=== PATIENT | female | born 1985 | race American Indian/Alaskan Native ===

== ENCOUNTER 2020-06-15 09:29 | Outpatient (REF) | payer OTHER, SELFPAY | END 2020-06-15 09:30 | disposition home or self-care (01) | LOC: HO.LAB 09:29 | PROVIDERS: PCP Internal Medicine; Visit Provider Internal Medicine | DX: Z20.822 Contact with and (suspected) exposure to COVID-19 (principal) | CPT/HCPCS: 36415; C9803; U0003 ==

== ENCOUNTER 2020-08-30 15:22 | Outpatient (REF) | payer OTHER, SELFPAY ==
[2020-08-30 17:35] LABS: HCG Quantitative < 2 mIU/mL; Thyroid Stimulating Hormone 1.58 uIU/mL (0.32-4.0)
[2020-08-31 04:30] LABS: HIV AB/AG Nonreactive (Nonreactive); HIV Num 1 0.07 S/CO (0.00-0.99); ~HepC Num1 0.07 S/CO (0.00-0.79); ~Hepatitis C Antibody Nonreactive (Nonreactive)
[2020-08-31 04:42] LABS: HBsAGNum1 0.47 S/CO (0.00-0.99); Hepatitis B Surface Antigen Negative (Negative)
[2020-08-31 08:49] LABS: CT PCR NOT DETECTED (Not Detect.); NG PCR NOT DETECTED (Not Detect.)
[2020-08-31 09:19] LABS: BV Int Neg Control Negative (Negative); BV Int Pos Control Positive (Positive)
[2020-09-01 04:26] LABS: Syphilis Screen Nonreactive (Nonreactive)
[2020-09-02 01:07] LABS: HPV mRNA E6/E7 rflx Not Detected (Not Detected)
== END 2020-08-30 15:23 | disposition home or self-care (01) ==
LOC: HO.LAB 15:22
PROVIDERS: PCP Internal Medicine; Visit Provider Obstetrics & Gynecology
DX: Z30.431 Encounter for routine checking of intrauterine contraceptive device (principal); N93.0 Postcoital and contact bleeding; Z11.3 Encounter for screening for infections with a predominantly sexual mode of transmission
CPT/HCPCS: 36415; 84443; 84702; 86780; 86803; 87340; 87389; 87480; 87491; 87510; 87591; 87624; 87660; 88142; 99212

== ENCOUNTER 2020-09-05 15:52 | Outpatient (REF) | payer OTHER, SELFPAY ==
--- NOTE | ~2020-09-05 | US_ITS ---
EXAMINATION: ULTRASOUND PELVIS COMPLETE CLINICAL INFORMATION: Post coital and contact bleeding COMPARISON: None TECHNIQUE: Transabdominal and transvaginal ultrasound pelvis is performed FINDINGS: The uterus is anteverted and anteflexed measuring 9.3 cm in length, 1.8 cm in AP and 3.9 cm in transverse dimension. There is IUD visualized lower located in the lower uterine segment same as previous study. The endometrial thickness is 1.3 cm. There is a tenderness on transvaginal ultrasound imaging the uterus hence mild limitation. The right ovary is not visualized. The left ovary measures 2.9 x 2.3 x 2.1 cm and volume 7.3 mL. There are small follicular cysts seen in left ovary. There is no free fluid in the cul-de-sac US/US pelvic complete IMPRESSION: Small follicular cyst in the left ovary. The right ovary is not seen. IUD in the lower uterine segment. The uterus is unremarkable. There is no free fluid in cul-de-sac.
--- NOTE | ~2020-09-05 | US_ITS ---
EXAMINATION: ULTRASOUND PELVIS COMPLETE CLINICAL INFORMATION: Post coital and contact bleeding COMPARISON: None TECHNIQUE: Transabdominal and transvaginal ultrasound pelvis is performed FINDINGS: The uterus is anteverted and anteflexed measuring 9.3 cm in length, 1.8 cm in AP and 3.9 cm in transverse dimension. There is IUD visualized lower located in the lower uterine segment same as previous study. The endometrial thickness is 1.3 cm. There is a tenderness on transvaginal ultrasound imaging the uterus hence mild limitation. The right ovary is not visualized. The left ovary measures 2.9 x 2.3 x 2.1 cm and volume 7.3 mL. There are small follicular cysts seen in left ovary. There is no free fluid in the cul-de-sac US/US transvaginal IMPRESSION: Small follicular cyst in the left ovary. The right ovary is not seen. IUD in the lower uterine segment. The uterus is unremarkable. There is no free fluid in cul-de-sac.
== END 2020-09-05 15:53 | disposition home or self-care (01) ==
LOC: HO.US 15:52
PROVIDERS: PCP Internal Medicine; Visit Provider Obstetrics & Gynecology
DX: N93.0 Postcoital and contact bleeding (principal)
CPT/HCPCS: 76830; 76856

== ENCOUNTER → 2020-09-19 14:32 | Outpatient (BNVA) | payer OTHER, SELFPAY | PROVIDERS: PCP Internal Medicine; Visit Provider Obstetrics & Gynecology ==

== ENCOUNTER 2020-09-20 15:16 | Outpatient (REF) | payer OTHER, SELFPAY ==
[2020-09-20 15:46] LABS: COVID-19 Test Negative (Negative); IDNOW Serial# 55D5AD1C
== END 2020-09-20 15:17 | disposition home or self-care (01) ==
LOC: HO.LAB 15:16
PROVIDERS: Visit Provider Internal Medicine
DX: Z20.822 Contact with and (suspected) exposure to COVID-19 (principal)
CPT/HCPCS: 36415; 87635; C9803

== ENCOUNTER 2020-11-30 13:48 | Outpatient (REF) | payer OTHER, SELFPAY ==
[2020-12-01 07:47] LABS: Syphilis Screen Nonreactive (Nonreactive)
[2020-12-01 11:48] LABS: CT PCR NOT DETECTED (Not Detect.); NG PCR NOT DETECTED (Not Detect.)
== END 2020-11-30 13:49 | disposition home or self-care (01) ==
LOC: HO.LAB 13:48
PROVIDERS: PCP Internal Medicine; Visit Provider Obstetrics & Gynecology
DX: Z11.3 Encounter for screening for infections with a predominantly sexual mode of transmission (principal)
CPT/HCPCS: 36415; 86780; 87491; 87591

== ENCOUNTER 2021-01-09 07:54 | Outpatient (REF) | payer OTHER, SELFPAY ==
[2021-01-09 13:43] LABS: CT PCR NOT DETECTED (Not Detect.); NG PCR NOT DETECTED (Not Detect.)
== END 2021-01-09 07:55 | disposition home or self-care (01) ==
LOC: HO.LAB 07:54
PROVIDERS: PCP Internal Medicine; Visit Provider Obstetrics & Gynecology
DX: Z30.430 Encounter for insertion of intrauterine contraceptive device (principal)
CPT/HCPCS: 58300; 87491; 87591

== ENCOUNTER → 2021-02-06 15:19 | Outpatient (BNVA) | payer OTHER, SELFPAY | PROVIDERS: PCP Internal Medicine; Visit Provider Obstetrics & Gynecology | DX: Z30.431 Encounter for routine checking of intrauterine contraceptive device (principal) | CPT/HCPCS: 99212 ==

== ENCOUNTER 2021-05-29 11:42 | Outpatient (REF) | payer OTHER, SELFPAY ==
[2021-05-29 14:50] LABS: Binax Internal Control QC Valid; Binax Lot number: 9864; Binax Now Covid-19 Ag Negative (Negative)
== END 2021-05-29 11:43 | disposition home or self-care (01) ==
LOC: HO.LAB 11:42
PROVIDERS: Visit Provider Internal Medicine
DX: Z20.822 Contact with and (suspected) exposure to COVID-19 (principal)
CPT/HCPCS: 36415; C9803

== ENCOUNTER 2021-07-23 08:36 | Outpatient (REF) | payer OTHER, SELFPAY ==
[2021-07-23 11:00] LABS: Hematocrit 44.5 % (37.0-47.0); Hemoglobin 13.3 g/dl (12.0-16.0); Mean Corpuscular HGB Conc 29.9 g/dl (31.0-35.0); Mean Corpuscular Hemoglobin 21.6 pg (27.0-33.0); Mean Corpuscular Volume 72.1 fL (80.0-98.0); Mean Platelet Volume 10.3 fL (9.4-12.3); Platelet Count 298 X10*3/uL (160-400); Red Blood Count 6.17 X10*6/uL (4.20-5.50); Red Cell Distribution Width 17.8 % (11.0-16.0)
[2021-07-23 11:50] LABS: ~Hepatitis C Antibody Nonreactive (Nonreactive)
[2021-07-23 12:02] LABS: HIV AB/AG Nonreactive (Nonreactive); HIV Num 1 0.08 S/CO (0.00-0.99); Hepatitis B Surface Antigen Negative (Negative)
[2021-07-23 12:13] LABS: Syphilis Screen Nonreactive (Nonreactive)
[2021-07-23 15:13] LABS: CT PCR NOT DETECTED (Not Detect.); NG PCR NOT DETECTED (Not Detect.)
[2021-07-23 16:22] LABS: BV Int Neg Control Negative (Negative); BV Int Pos Control Positive (Positive)
== END 2021-07-23 08:37 | disposition home or self-care (01) ==
LOC: HO.LAB 08:36
PROVIDERS: Visit Provider Advanced Practice Midwife
DX: Z01.411 Encounter for gynecological examination (general) (routine) with abnormal findings (principal); Z11.3 Encounter for screening for infections with a predominantly sexual mode of transmission; Z11.4 Encounter for screening for human immunodeficiency virus [HIV]; R10.9 Unspecified abdominal pain; N89.8 Other specified noninflammatory disorders of vagina; Z20.2 Contact with and (suspected) exposure to infections with a predominantly sexual mode of transmission; T38.4X5A Adverse effect of oral contraceptives, initial encounter; Z86.2 Personal history of diseases of the blood and blood-forming organs and certain disorders involving the immune mechanism
CPT/HCPCS: 36415; 85027; 86780; 86803; 87086; 87340; 87389; 87480; 87491; 87510; 87591; 87660; 99212

== ENCOUNTER 2021-08-15 12:55 | Outpatient (REF) | payer OTHER, SELFPAY ==
--- NOTE | ~2021-08-15 | US_ITS ---
EXAMINATION: US PELVIS CLINICAL INFORMATION: Abnormal uterine bleeding. COMPARISON: Previous pelvic ultrasound August 2020 TECHNIQUE: Ultrasound of the pelvis is performed using both transabdominal and transvaginal transducers along with Doppler. Transvaginal imaging is performed due to inadequate visualization transabdominally. FINDINGS: The uterus is anteverted and retroflexed and measures 11.8 x 4.2 x 5.2 cm in dimension. There is an IUD in the uterus in satisfactory position. Endometrial thickness is upper normal measuring 1.5 cm. No focal uterine lesion is seen. There is a small amount of fluid in the cervix. The ovaries are seen transabdominally only. The right ovary is normal-appearing and measures 3.5 x 1.8 x 2.9 cm. The left ovary is slightly enlarged and measures 4.3 x 2.6 x 3.5 cm. There is a 4.1 x 1.9 x 3.3 cm minimally complex cyst with single thin septation. This is new from August 2020 exam. There is no fluid in the pelvis. US/US pelvic and transvaginal IMPRESSION: IUD in the uterus in satisfactory position. Upper normal thickness endometrium measuring 1.5 cm. 4.1 x 1.9 x 3.3 cm minimally complex left ovarian cyst with single thin septation new from August 2020 exam.
[2021-08-15 14:59] LABS: HCG Quantitative < 2 mIU/mL; TSH reflex Free T4 1.88 uIU/mL (0.32-4.0)
== END 2021-08-15 12:56 | disposition home or self-care (01) ==
LOC: HO.US 12:55
PROVIDERS: Obstetrics & Gynecology; Visit Provider Advanced Practice Midwife
DX: N93.9 Abnormal uterine and vaginal bleeding, unspecified (principal); T38.4X5A Adverse effect of oral contraceptives, initial encounter
CPT/HCPCS: 36415; 76830; 76856; 81025; 84443; 84702

== ENCOUNTER 2021-08-29 14:48 | Outpatient (REF) | payer OTHER, SELFPAY ==
[2021-08-31 02:41] LABS: CA 125 New Method 6 U/mL (<35); CA-125 6 U/mL (<35)
== END 2021-08-29 14:49 | disposition home or self-care (01) ==
LOC: HO.LAB 14:48
PROVIDERS: PCP Nurse Practitioner Pediatrics; Visit Provider Obstetrics & Gynecology
DX: N83.299 Other ovarian cyst, unspecified side (principal); N93.9 Abnormal uterine and vaginal bleeding, unspecified
CPT/HCPCS: 36415; 86304; 99212

== ENCOUNTER 2021-11-29 11:01 | Outpatient (REF) | payer OTHER, SELFPAY ==
--- NOTE | ~2021-11-29 | US_ITS ---
EXAMINATION: US PELVIS CLINICAL INFORMATION: Follow up complex ovarian cyst COMPARISON: Previous pelvic ultrasound most recent July 2021 TECHNIQUE: Ultrasound of the pelvis is performed using both transabdominal and transvaginal transducers along with Doppler. Transvaginal imaging is performed due to inadequate visualization transabdominally. FINDINGS: The uterus is anteverted and retroflexed and measures 9.6 x 5 x 5.4 cm in dimension. There is an IUD in the uterus in satisfactory position. The endometrium does not appear thickened. There is a small amount of fluid seen in the lower uterine segment and cervix. No focal uterine lesion is seen. The ovaries are normal-appearing. The right ovary measures 3.8 x 2.6 x 2.6 cm. The left ovary measures 3.5 x 2.5 x 2.2 cm. There is no fluid in the pelvis. US/US pelvic and transvaginal Impression: IUD in the uterus in satisfactory position. Normal-appearing ovaries. Previously identified left ovarian cyst from July 2021 has resolved.
== END 2021-11-29 11:02 | disposition home or self-care (01) ==
LOC: HO.US 11:01
PROVIDERS: Visit Provider Obstetrics & Gynecology
DX: N83.299 Other ovarian cyst, unspecified side (principal)
CPT/HCPCS: 76830; 76856

== ENCOUNTER 2021-12-13 14:43 | Outpatient (REF) | payer OTHER, SELFPAY | END 2021-12-13 14:44 | disposition home or self-care (01) | LOC: HO.LAB 14:43 | PROVIDERS: Visit Provider Obstetrics & Gynecology | DX: N83.299 Other ovarian cyst, unspecified side (principal); N93.9 Abnormal uterine and vaginal bleeding, unspecified | CPT/HCPCS: 58100; 88305; 99212 ==

== ENCOUNTER → 2022-01-01 11:49 | Outpatient (BNVA) | payer OTHER, SELFPAY | PROVIDERS: PCP Nurse Practitioner Pediatrics; Visit Provider Obstetrics & Gynecology | DX: N93.9 Abnormal uterine and vaginal bleeding, unspecified (principal); Z71.2 Person consulting for explanation of examination or test findings | CPT/HCPCS: 99212 ==

== ENCOUNTER 2023-04-29 09:30 | Outpatient (REF) | payer SELFPAY ==
[2023-04-29 17:35] LABS: CT PCR NOT DETECTED (Not Detect.); NG PCR NOT DETECTED (Not Detect.)
[2023-04-30 14:21] LABS: BV Int Neg Control Negative (Negative); BV Int Pos Control Positive (Positive)
== END 2023-04-29 09:31 | disposition home or self-care (01) ==
LOC: HO.LNP 09:30
PROVIDERS: PCP Nurse Practitioner Pediatrics; Visit Provider Obstetrics & Gynecology
DX: N93.9 Abnormal uterine and vaginal bleeding, unspecified (principal); N76.0 Acute vaginitis; B96.89 Other specified bacterial agents as the cause of diseases classified elsewhere
CPT/HCPCS: 0353U; 87480; 87510; 87660; 99212

== ENCOUNTER 2023-04-29 09:30 | Outpatient (AMB) | payer SELFPAY ==
[2023-04-29 09:37] VITALS: BP 116/80; BMI 29.1
--- NOTE | 2023-04-29 09:37 | MHC.OFFVIS ---
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 The workup done for abnormal uterine bleeding in 01/12 see was the following: TSH, hCG, GC and chlamydia done few months ago were negative. Endometrial biopsy pathology showed no evidence of hyperplasia and/or malignancy. Co testing was done in 09/13 was negative. Pelvic ultrasound showed IUD in appropriate position otherwise unremarkable PFSH Medical History Hypertension Anorexia Surgical History H/O bilateral breast reduction surgery History of 2 sections Social History Alcohol intake: never Patient Tobacco Use Status: Never used Tobacco Gender identity: Female Female Reproductive History Menstrual Age of Menarche: 12 Duration of menses: 6-7 days Date of last menstrual period: 04/18/23 control method: none Date of last pap smear: 08/31/20 (negative) Review of Systems Const All systems reviewed & are unremarkable except as noted in HPI and below Physical Exam General: Yes no CVA tenderness External Female Exam: normal external appearance and normal appearance of the urethra Speculum Exam - Vagina: normal appearance of the vagina, normal palpation, no lesions and no masses Speculum Exam - Cervix: normal appearance of the cervix, normal palpation, no lesions, no masses and nontender Bimanual exam- vagina & uterus: normal bimanual exam, normal palpation, uterine size normal, normal palpation, uterine shape normal, No Cervical tenderness present and non-tender Bimanual Exam- Adnexa, other: normal adnexae Back/Spine/Pelvis Back: no CVA tenderness Assessment & Plan Assessment & Plan (1) Abnormal uterine bleeding (AUB): Code(s): N93.9 - Abnormal uterine and vaginal bleeding, unspecified Plan: Discussed with the patient the results of the work up done and options of treatment including Lysteda, BCP's, Depo-Provera, endometrial ablation and hysterectomy. All pros, cons, risks and benefits if each option was discussed with the patient and the patient decided to think about it and get back to us. All questions answered the patient verbalized understanding. (2) Bacterial vaginal infection: Code(s): N76.0 - Acute vaginitis; B96.89 - Other specified bacterial agents as the cause of diseases classified elsewhere Plan: GC and chlamydia cultures with BV panel taken. Per CDC recommendation, will screen for STI, HepBs Ag, HIV, RPR, Hep C Ab ordered. Will treat with Flagyl 500 mg p.o. b.i.d. x 7 days, Instructions given to the patient to refrain from sexual activity or to use condoms consistently and correctly during the BV treatment regimen, not to douch, it might increase the risk for relapse, and to call if symptoms persist or recur. Orders: Orders Bacterial Vaginosis Panel Today N93.9 - Abnormal uterine and vaginal bleeding, unspecified Hepatitis B Surface Antibody Today B96.89 - Other specified bacterial agents as the cause of diseases classified elsewhere, N76.0 - Acute vaginitis Hepatitis C Antibody Today B96.89 - Other specified bacterial agents as the cause of diseases classified elsewhere, N76.0 - Acute vaginitis CT NG by PCR Today N93.9 - Abnormal uterine and vaginal bleeding, unspecified Syphilis Screen Today B96.89 - Other specified bacterial agents as the cause of diseases classified elsewhere, N76.0 - Acute vaginitis HIV Ab/Ag Today B96.89 - Other specified bacterial agents as the cause of diseases classified elsewhere, N76.0 - Acute vaginitis Medications: New metronidazole 500 mg PO BID 14 tabs 0RF 7 days Coding Level of Care Code Est Pt Level 3 (50553) Diagnoses Abnormal uterine bleeding (AUB) N93.9 Bacterial vaginal infection N76.0; B96.89
== END 2023-04-29 10:14 | disposition home or self-care (01) ==
LOC: HO.HWS 09:30
PROVIDERS: PCP Nurse Practitioner Pediatrics; Visit Provider Obstetrics & Gynecology
DX: N93.9 Abnormal uterine and vaginal bleeding, unspecified (principal); N76.0 Acute vaginitis; B96.89 Other specified bacterial agents as the cause of diseases classified elsewhere
CPT/HCPCS: 99213

== ENCOUNTER 2023-06-17 16:44 | Outpatient (REF) | payer OTHER, SELFPAY ==
[2023-06-18 08:57] LABS: Syphilis Screen Nonreactive (Nonreactive)
[2023-06-18 09:22] LABS: HIV AB/AG Nonreactive (Nonreactive); HIV Num 1 0.07 S/CO (0.00-0.99); ~HepC Num1 0.07 S/CO (0.00-0.79); ~Hepatitis B Surface Antibody REACTIVE (Nonreactive); ~Hepatitis C Antibody Nonreactive (Nonreactive)
== END 2023-06-17 16:45 | disposition home or self-care (01) ==
LOC: HO.LAB 16:44
PROVIDERS: PCP Internal Medicine; Visit Provider Obstetrics & Gynecology
DX: N76.0 Acute vaginitis (principal); B96.89 Other specified bacterial agents as the cause of diseases classified elsewhere
CPT/HCPCS: 36415; 86706; 86780; 86803; 87389

== ENCOUNTER 2024-04-20 13:27 | Outpatient (AMB) | payer OTHER, SELFPAY ==
[2024-04-20 13:37] VITALS: BP 118/70; BMI 26.8
--- NOTE | 2024-04-20 13:37 | MHC.OFFVIS ---
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 She says that she had a Mirena IUD placed twice last year but her body rejected it 2 times so she says in her conversation with Dr. Clements who has decided she would not use it anymore she says her partner is in [place] but he has had a vasectomy so she does not need control anyway. She said prior to the Mirena that came out twice she had a ParaGard copper IUD for 10 years and she had it removed because it was and that was fine accept that she says that she gained a lot of weight while she had it in she says that she lost a lot a weight when it was removed and sometime after that she then had breast reduction surgery and abdominal plasty in [place].. She feels something on her left side than she would like that checked. She complains of discharge periodically in her cycle and does not think it is normal she says sometimes it smells after her period, she says sometimes she gets vaginal itching after taking antibiotics. She says she also gets increased discharge with ovulation but she also gets a little bit more discharge before and after her. And she does not think this is her menses and she does not think this is normal or so much discharge with ovulation either. She says her periods are very normal and always come at the same time and her last 1 came on March 29. She says her periods are much more regular now that she has lost all the weight and does not have an IUD in. [facility] Medical History Hypertension Anorexia Surgical History H/O bilateral breast reduction surgery History of 2 sections Social History Alcohol intake: never Patient Tobacco Use Status: Never used Tobacco Gender identity: Female Female Reproductive History Menstrual Age of Menarche: 12 Duration of menses: 3-5 days Date of last menstrual period: 02/28/24 control method: none Total pregnancies: 2 Full term: 2 Date of last pap smear: 08/31/20 (negative) History of abnormal pap smear: No Physical Exam Vital Signs: Last Vital Signs BP 118/70 04/20/24 13:37 BMI result Body Mass Index 26.8 Const General: healthy appearing, comfortable, no acute distress, well developed and alert Nutritional Appearance: average body habitus Orientation/consciousness: patient oriented x3 Limitations: no limitations HEENT Head: Yes normocephalic Neck Neck: Yes normal visual inspection Chest Chest palpation & inspection: normal inspection of the chest Breast/axilla inspection: normal inspection of the breasts and normal inspection of the axillae Breast/axilla palpation: normal palpation of the breasts and normal palpation of the axillae Resp Effort & Inspection: normal respiratory effort GI Inspection: Yes normal to inspection, No Abdominal wall edema and No distended Palpation (GI): Soft to palpation and nontender Other: Note scars from breast reduction surgery and from abdominal plasty Vagina is pink and moist fairly normal appearing white mucus consistent with luteal phase cervix pink smooth healthy mobile nontender uterus feels either slightly enlarged anterior or is fixed status post abdominal plastic surgery and therefore more easily palpable secondary to alteration in abdominal musculature no unusual mass palpated but I will get ultrasound to check. Good muscle tone General: Yes bladder normal to palpation External Female Exam: normal external appearance and normal appearance of the urethra Speculum Exam - Vagina: normal appearance of the vagina, normal palpation and normal vaginal discharge Speculum Exam - Cervix: normal appearance of the cervix, normal palpation and nontender Bimanual exam- vagina & uterus: normal bimanual exam, normal palpation, uterine size normal, bladder normal to palpation, consistency normal, normal palpation, uterine mobility normal, uterine shape normal, No Cervical tenderness present, non-tender and no cervical motion tenderness Bimanual Exam- Adnexa, other: normal adnexae, no masses, normal and No adnexal tenderness Neuro General: patient oriented x3 Results Reviewed Results Reviewed: Name: Kelly Fowler Age/Sex: 35/F Attending: Vu Clements MD : 1985 Submitted by: Vu Clements MD Copies to: RIGOBERTO ARENAS MD MR #: [id number] Status: DEP REF Collected: 08/30/20 Location: .LAB Received: 08/31/20 Interpretation Satisfactory for evaluation. Negative for intraepithelial lesion or malignancy. Fungal organisms consistent with Maryse species. HPV mRNA E6/E7: NOT DETECTED This assay detects E6/E7 viral messenger RNA (mRNA) from 14 high-risk HPV types (16, 18, 31, 33, 35, 39, 45, 51, 52, 56, 58, 59, 66, 68) HPV testing performed by [facility], [place], [place]. See reference laboratory portion of the EMR for entire report. Clinical Information LMP: 08/05/20 Previous PAP test: Unknown Date/Findings Material Received ThinPrep Cervical Copies To RIGOBERTO ARENAS MD [address] [place] [address] [phone] Vu Clements MD [address] [place] [address] Dr. Ren [address] [place] [address] [phone] Electronically Signed By: Jazmine Lloyd 09/04/20 2271 The Pap Test is a screening procedure with the inherent possibility of both false negative and false positive results. Results should be interpreted in the context of historic and current clinical findings. Reliability of the Pap Test is enhanced by performing the test on a regular repetitive basis. Patient: Ras Page 1 of 1 Assessment & Plan Assessment & Plan (1) History of 2 sections: Code(s): Z98.891 - History of uterine scar from previous surgery Category: Surgical (2) Screening for STD (sexually transmitted disease): Code(s): Z11.3 - Encounter for screening for infections with a predominantly sexual mode of transmission Category: Medical (3) control counseling: Code(s): Z30.09 - Encounter for other general counseling and advice on contraception Category: Medical (4) H/O bilateral breast reduction surgery: Code(s): Z98.890 - Other specified postprocedural states Category: Surgical (5) Well woman exam: Code(s): Z01.419 - Encounter for gynecological examination (general) (routine) without abnormal findings Category: Medical (6) Well woman exam with routine gynecological exam: Code(s): Z01.419 - Encounter for gynecological examination (general) (routine) without abnormal findings Category: Medical (7) Hx of abdominoplasty: Code(s): Z98.890 - Other specified postprocedural states Category: Surgical (8) Bulky or enlarged uterus: Comment: Versus simply more easy to feel status post abdominal plasty Code(s): N85.2 - Hypertrophy of uterus Category: Medical Plan -----Discussed in this visit the following: healthy balanced diet, regular and consistent exercise, getting recommended health screens, doing the best she can for her particular health concerns, kegel exercises, pap smear screening and followup recommendations, mammography screening and SBE, normal changes in cycles in her life stage--- . Patient desires HIV testing and other blood work for STIs testing done for other infections as well discharge does appear within normal limits but we will await the results of the testing and she may certainly treat if there is bacteria or yeast even though they are normal cristian. Discussed that she is not due for Pap smear if she never ever ever had an abnormal in her last 1 was negative in 2020. Discussed that the ParaGard IUD could not in any way influence weight gain or loss. However there could have been other life circumstances for sure that could have contributed to it in any event she is happy with her weight now and maintaining it well. Because of her concern for something that she feels and just to be certain I am ordering a pelvic ultrasound as her uterus was somewhat easy to palpate and just to make sure it is not enlarged. It may have been just more palpable because of her abdominal plasty. Orders: Orders Bacterial Vaginosis Panel Today N89.8 - Other specified noninflammatory disorders of vagina HIV Ab/Ag Today Z01.419 - Encounter for gynecological examination (general) (routine) without abnormal findings, Z11.3 - Encounter for screening for infections with a predominantly sexual mode of transmission, Z30.09 - Encounter for other general counseling and advice on contraception, Z98.890 - Other specified postprocedural states, Z98.891 - History of uterine scar from previous surgery Syphilis Screen Today Z01.419 - Encounter for gynecological examination (general) (routine) without abnormal findings, Z11.3 - Encounter for screening for infections with a predominantly sexual mode of transmission, Z30.09 - Encounter for other general counseling and advice on contraception, Z98.890 - Other specified postprocedural states, Z98.891 - History of uterine scar from previous surgery US pelvic and transvaginal Today N85.2 - Hypertrophy of uterus, Z98.890 - Other specified postprocedural states CT NG by PCR Today N89.8 - Other specified noninflammatory disorders of vagina, Z20.2 - Contact with and (suspected) exposure to infections with a predominantly sexual mode of transmission Hepatitis C Antibody Today [id number] - Encounter for gynecological examination (general) (routine) without abnormal findings, Z11.3 - Encounter for screening for infections with a predominantly sexual mode of transmission, Z30.09 - Encounter for other general counseling and advice on contraception, Z98.890 - Other specified postprocedural states, Z98.891 - History of uterine scar from previous surgery Hepatitis B Surface Antigen Today Z01.419 - Encounter for gynecological examination (general) (routine) without abnormal findings, Z11.3 - Encounter for screening for infections with a predominantly sexual mode of transmission, Z30.09 - Encounter for other general counseling and advice on contraception, Z98.890 - Other specified postprocedural states, Z98.891 - History of uterine scar from previous surgery Coding Level of Care Code Est Pt Prev Care 18-39y(47295) Diagnoses History of 2 sections Z98.891 Screening for STD (sexually transmitted disease) Z11.3 control counseling Z30.09 H/O bilateral breast reduction surgery Z98.890 Well woman exam Z01.419 Well woman exam with routine gynecological exam Z01.419 Hx of abdominoplasty Z98.890 Bulky or enlarged uterus N85.2
== END 2024-04-20 14:35 | disposition home or self-care (01) ==
PROVIDERS: PCP Internal Medicine; Visit Provider Advanced Practice Midwife
DX: Z01.419 Encounter for gynecological examination (general) (routine) without abnormal findings (principal); Z98.891 History of uterine scar from previous surgery; Z11.3 Encounter for screening for infections with a predominantly sexual mode of transmission; Z30.09 Encounter for other general counseling and advice on contraception; Z98.890 Other specified postprocedural states; N85.2 Hypertrophy of uterus
CPT/HCPCS: 99395

== ENCOUNTER 2024-04-20 13:27 | Outpatient (REF) | payer OTHER, SELFPAY ==
[2024-04-21 04:06] LABS: CT PCR NOT DETECTED (Not Detect.); NG PCR NOT DETECTED (Not Detect.)
[2024-04-21 08:52] LABS: Bacterial Vaginosis PCR POSITIVE (Negative); Candida Group PCR NOT DETECTED (Not Detect); Candida glab krusei PCR NOT DETECTED (Not Detect); Trichomonas vaginalis PCR NOT DETECTED (Not Detect)
== END 2024-04-20 13:28 | disposition home or self-care (01) ==
LOC: HO.LAB 13:27
PROVIDERS: PCP Internal Medicine; Visit Provider Advanced Practice Midwife
DX: Z01.419 Encounter for gynecological examination (general) (routine) without abnormal findings (principal); N89.8 Other specified noninflammatory disorders of vagina; Z20.2 Contact with and (suspected) exposure to infections with a predominantly sexual mode of transmission
CPT/HCPCS: 0352U; 87491; 87591; 99395

== ENCOUNTER 2024-04-21 13:23 | Outpatient (REF) | payer OTHER, SELFPAY ==
[2024-04-22 08:31] LABS: HBsAGNum1 0.51 S/CO (0.00-0.99); HIV AB/AG Nonreactive (Nonreactive); HIV Num 1 0.05 S/CO (0.00-0.99); Hepatitis B Surface Antigen Negative (Negative); ~Hepatitis C Antibody Nonreactive (Nonreactive)
[2024-04-22 08:33] LABS: Syphilis Screen Nonreactive (Nonreactive)
== END 2024-04-21 13:24 | disposition home or self-care (01) ==
LOC: HO.HHCL 13:23
PROVIDERS: Visit Provider Advanced Practice Midwife
DX: Z11.4 Encounter for screening for human immunodeficiency virus [HIV] (principal); Z11.3 Encounter for screening for infections with a predominantly sexual mode of transmission; Z98.890 Other specified postprocedural states; Z98.891 History of uterine scar from previous surgery
CPT/HCPCS: 36415; 86780; 86803; 87340; 87389

== ENCOUNTER 2024-05-03 13:02 | Outpatient (REF) | payer OTHER, SELFPAY | END 2024-05-03 13:03 | disposition home or self-care (01) | LOC: HO.US 13:02 | PROVIDERS: PCP Internal Medicine; Visit Provider Advanced Practice Midwife | DX: N85.2 Hypertrophy of uterus (principal); Z98.890 Other specified postprocedural states | CPT/HCPCS: 76830; 76856 ==

== ENCOUNTER 2024-06-17 11:19 | Outpatient (AMB) | payer OTHER, SELFPAY ==
[2024-06-17 11:37] VITALS: BP 116/66; BMI 26.6
--- NOTE | 2024-06-17 11:37 | MHC.OFFVIS ---
Vital Signs 06/17/24 11:37 Height 5 ft 1 in Weight 141 lb BMI 26.6 BP 116/66 Intake Visit Reasons: Ultrasound follow up [employer] Services: [employer] Present Information Interpreted: clinical only Birth Attendant: Birth Attendant Present Allergies amoxicillin [AMOXICILLIN] Allergy (Mild, Verified 06/17/24 11:37) ITCH Medication List - Last Reconciled 06/17/24 by Corina Manuel CNM amlodipine 10 mg PO DAILY Is last menstrual period known: Yes Last menstrual period: 05/28/24 HPI HPI Ultrasound follow up: Details: Patient is here to follow-up on her pelvic ultrasound she was seen in April and she was noticing some discomfort on the right side. She had had abdominal plasty in [place] after she had lost a lot of weight she lost the weight on her own with her diet and being careful she did not qualify for bariatric surgery. She is maintaining the weight loss and she feels better she does suffer from constipation. She does note that she has regular periods now and she had it quite it it with not having the ParaGard IUD anymore but I again clarified that the ParaGard IUD does not cause irregular periods however when she had irregular periods she was in the 250 lb range and I explained again how being overweight contributes to irregular and missed menses. Reviewed the ultrasound with her in detail reviewed that there was no pathology seen and that some things were not seen well because of gas overlying. Discussed the symptoms of when she has pain and discomfort and gas and she does know in fact that she is more prone to constipation and gas pains in the 2nd half of her menstrual cycle after ovulation. Discussed that this is a normal occurrence for most women and reviewed the physiological changes that occur with the hormonal changes that part of the cycle contributing to increased issues with constipation. She uses prune juice to help with that which is excellent she says MiraLax does not work for her. 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 Her primary care provider's in the [place] system. PFSH Medical History Hypertension Anorexia Surgical History Hx of abdominoplasty H/O bilateral breast reduction surgery History of 2 sections Social History (Reviewed 06/17/24 @ 11:38 by JAMAAL Maurice Alcohol intake: never Patient Tobacco Use Status: Never used Tobacco Gender identity: Female Female Reproductive History Menstrual Age of Menarche: 12 Date of last menstrual period: 05/28/24 control method: none Date of last pap smear: 08/31/20 (negative) Physical Exam Vital Signs: Last Vital Signs BP 116/66 06/17/24 11:37 BMI result Body Mass Index 26.6 Results Reviewed Results Reviewed: Patient: Kelly Fowler MR#: [id number] : 1985 Acct:[id number] Age/Sex: 38 / F ADM Date: 05/03/24 Loc: HO.US Attending Dr: Corina Manuel CNM Ordering Physician: Corina Manuel CNM Date of Service: 05/03/24 Procedure(s): US pelvic and transvaginal Accession Number(s): [id number] cc: Corina Manuel CNM; Shanice Duke MD~ EXAMINATION: US PELVIS CLINICAL INFORMATION: Hypertrophy of uterus, last menstrual period 04/26/2024. COMPARISON: 11/29/2021 TECHNIQUE: Ultrasound of the pelvis is performed using both transabdominal and transvaginal transducers along with Doppler. Transvaginal imaging is performed due to inadequate visualization transabdominally. FINDINGS: Anteverted uterus measures 10.2 x 4.0 x 5.9 cm and is retroflexed. Nabothian cysts in the cervix. Trace amount of fluid in the lower uterine segment and in the endocervical canal. Double wall endometrial thickness is 5 mm. Right ovary measures 2.6 x 2.1 x 3.1 cm, volume 12.3 mL. Left ovary measures 3.6 x 2.4 x 2.5 cm, volume 11.4 mL. Visualization of the bilateral ovaries is limited due to bowel gas. US/US pelvic and transvaginal IMPRESSION: 1. Endometrial thickness is 5 mm. 2. Prominent bilateral ovaries as detailed above are difficult to characterize due to limited visualization. 3. Limited visualization particularly of the uterine fundus and body due to uterine position and bowel gas. Electronically signed by: Marilyn Arnold MD 06/14/2024 10:02 AM EST Assessment & Plan Assessment & Plan (1) Bulky or enlarged uterus: Comment: Versus simply more easy to feel status post abdominal plasty; no pathology seen on ultrasound though obscured somewhat by gas... Code(s): N85.2 - Hypertrophy of uterus Category: Medical Plan Patient is here to follow-up on her pelvic ultrasound she was seen in April and she was noticing some discomfort on the right side. She had had abdominal plasty in [place] after she had lost a lot of weight she lost the weight on her own with her diet and being careful she did not qualify for bariatric surgery. She is maintaining the weight loss and she feels better she does suffer from constipation. She does note that she has regular periods now and she had it quite it it with not having the ParaGard IUD anymore but I again clarified that the ParaGard IUD does not cause irregular periods however when she had irregular periods she was in the 250 lb range and I explained again how being overweight contributes to irregular and missed menses. Reviewed the ultrasound with her in detail reviewed that there was no pathology seen and that some things were not seen well because of gas overlying. Discussed the symptoms of when she has pain and discomfort and gas and she does know in fact that she is more prone to constipation and gas pains in the 2nd half of her menstrual cycle after ovulation. Discussed that this is a normal occurrence for most women and reviewed the physiological changes that occur with the hormonal changes that part of the cycle contributing to increased issues with constipation. She uses prune juice to help with that which is excellent she says MiraLax does not work for her. 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 Her primary care provider's in the [place] system. Reviewed all of the above and recommend that she consider signing for records of the ultrasound to get to her primary care provider and if she does have any increased problems with gas pains in constipation and discomfort that she talk with her primary care provider but there was no pathology noted and even though there was citing made of prominent ovaries the size indicated was within normal limits.. She is very happy with how she looks and feels now with her regular periods and after her abdominal plasty and weight loss. I congratulated her again on her efforts at keeping her body weight in the desirable range. May want to sign to make sure her primary gets copy of her pelvic ultrasound RTC for annual and p.r.n. Coding Level of Care Code Est Pt Level 3 (06893) Diagnoses Bulky or enlarged uterus N85.2
== END 2024-06-17 13:03 | disposition home or self-care (01) ==
LOC: HO.HWSM 11:19
PROVIDERS: PCP Internal Medicine; Visit Provider Advanced Practice Midwife
DX: N85.2 Hypertrophy of uterus (principal)
CPT/HCPCS: 99213

== ENCOUNTER → 2024-06-17 11:19 | Outpatient (BNVA) | payer OTHER, SELFPAY | PROVIDERS: PCP Internal Medicine; Visit Provider Advanced Practice Midwife | DX: N85.2 Hypertrophy of uterus (principal) | CPT/HCPCS: 99212 ==

== ENCOUNTER 2025-04-25 13:19 | Outpatient (AMB) | payer SELFPAY ==
--- NOTE | 2025-04-25 13:20 | MHC.OFFVIS ---
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 She did have sex with somebody but used a condom in December. She is not intending to have sex anymore her partner Rx partner is in [place] and she is not intending on being active any time soon and stated in the past that he had a vasectomy. She has had Mirena IUDs in the past and irregular menses as well as other methods. However since recent time she has had very normal periods and is not currently sexually active nor planning to be and does not need or require any other method of control. Her last menstrual period was April 15 it was normal they last about 4-5 days and they are coming regularly now. She says she has lost about 100 lb in total she had various cosmetic surgeries to deal with the aftermath of the weight loss including breast reduction surgery followed by a breast implants and abdominal plasty and also lie peau suction and hypo plasty but her body rejected some of it in her buttock and she had a large swelling suctioned out at [facility] a couple of months after the surgery it was not infected or anything it was just that her body rejected it according to the surgeon. She says her blood pressure is in good control in fact sometimes it is low so her doctor has told her to monitor it and take it when it is low. This note is constructed using voice recognition software. While every effort has been made to ensure accuracy, respite coordinator errors may have been included. PFSH Medical History Hypertension Anorexia Surgical History Hx of abdominoplasty H/O bilateral breast reduction surgery History of 2 sections Social History Alcohol intake: never Patient Tobacco Use Status: Never used Tobacco Patient : No Gender identity: Female Female Reproductive History Menstrual Age of Menarche: 12 Duration of menses: 3-5 days Date of last menstrual period: 04/15/25 control method: none Total pregnancies: 2 Full term: 2 Physical Exam Vital Signs: BMI result Body Mass Index 28.3 Const Other: Patient has scars from cosmetic surgery... General: healthy appearing, comfortable, no acute distress, well developed and alert Nutritional Appearance: average body habitus Orientation/consciousness: patient oriented x3 Limitations: no limitations HEENT Head: Yes normocephalic Neck Neck: Yes normal visual inspection Chest Chest palpation & inspection: normal inspection of the chest Breast/axilla inspection: normal inspection of the breasts and normal inspection of the axillae Breast/axilla palpation: normal palpation of the breasts and normal palpation of the axillae Resp Effort & Inspection: normal respiratory effort GI Inspection: Yes normal to inspection, No Abdominal wall edema and No distended Palpation (GI): Soft to palpation and nontender Other: External exam within normal limits vagina pink and moist scant amount white discharge. Cervix is pink and nulliparous healthy-appearing long close thick mobile nontender uterus anteverted does not feel enlarged but slightly fixed secondary to scar tissue from 2 C sections and abdominal plasty adnexa mobile nontender nonenlarged good muscle tone with Kegel. General: Yes bladder normal to palpation External Female Exam: normal external appearance and normal appearance of the urethra Speculum Exam - Vagina: normal appearance of the vagina, normal palpation and normal vaginal discharge Speculum Exam - Cervix: normal appearance of the cervix, normal palpation and nontender Bimanual exam- vagina & uterus: normal bimanual exam, normal palpation, uterine size normal, bladder normal to palpation, consistency normal, normal palpation, uterine mobility normal, uterine shape normal, No Cervical tenderness present, non-tender and no cervical motion tenderness Bimanual Exam- Adnexa, other: normal adnexae, no masses, normal and No adnexal tenderness Neuro General: patient oriented x3 Results Reviewed Results Reviewed: Name: Mcginnis NerisKelly Age/Sex: 35/F Attending: Vu Clements MD : 1985 Submitted by: Vu Clements MD Copies to: RIGOBERTO DUKE MD MR #: [id number] Status: DEP REF Collected: 08/30/20 Location: .LAB Received: 08/31/20 Interpretation Satisfactory for evaluation. Negative for intraepithelial lesion or malignancy. Fungal organisms consistent with Maryse species. HPV mRNA E6/E7: NOT DETECTED This assay detects E6/E7 viral messenger RNA (mRNA) from 14 high-risk HPV types (16, 18, 31, 33, 35, 39, 45, 51, 52, 56, 58, 59, 66, 68) HPV testing performed by [facility], [place], [place]. See reference laboratory portion of the EMR for entire report. Clinical Information LMP: 08/05/20 Previous PAP test: Unknown Date/Findings Material Received ThinPrep Cervical Copies To RIGOBERTO DUKE MD [address] [place] [address] [phone] Vu Clements MD [address] [place], [place] [address] [address] Electronically Signed By: Jazmine Lloyd 09/04/20 7038 The Pap Test is a screening procedure with the inherent possibility of both false negative and false positive results. Results should be interpreted in the context of historic and current clinical findings. Reliability of the Pap Test is enhanced by performing the test on a regular repetitive basis. Patient: Ras Page 1 of 1 Patient: Kelly Fowler MR#: [id number] : 1985 Acct:[id number] Age/Sex: 38 / F ADM Date: 05/03/24 Loc: HO.US Attending Dr: Corina Manuel CNM Ordering Physician: Corina Manuel CNM Date of Service: 05/03/24 Procedure(s): US pelvic and transvaginal Accession Number(s): [id number] cc: Corina Manuel CNM; Rigoberto Duke MD~ EXAMINATION: US PELVIS CLINICAL INFORMATION: Hypertrophy of uterus, last menstrual period 04/26/2024. COMPARISON: 11/29/2021 TECHNIQUE: Ultrasound of the pelvis is performed using both transabdominal and transvaginal transducers along with Doppler. Transvaginal imaging is performed due to inadequate visualization transabdominally. FINDINGS: Anteverted uterus measures 10.2 x 4.0 x 5.9 cm and is retroflexed. Nabothian cysts in the cervix. Trace amount of fluid in the lower uterine segment and in the endocervical canal. Double wall endometrial thickness is 5 mm. Right ovary measures 2.6 x 2.1 x 3.1 cm, volume 12.3 mL. Left ovary measures 3.6 x 2.4 x 2.5 cm, volume 11.4 mL. Visualization of the bilateral ovaries is limited due to bowel gas. US/US pelvic and transvaginal IMPRESSION: 1. Endometrial thickness is 5 mm. 2. Prominent bilateral ovaries as detailed above are difficult to characterize due to limited visualization. 3. Limited visualization particularly of the uterine fundus and body due to uterine position and bowel gas. 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: Assessment & Plan Assessment & Plan (1) History of 2 sections: Code(s): Z98.891 - History of uterine scar from previous surgery Category: Surgical (2) H/O bilateral breast reduction surgery: Comment: followed years later, after the weight loss, by breast implants Code(s): Z98.890 - Other specified postprocedural states Category: Surgical (3) Well woman exam with routine gynecological exam: Code(s): Z01.419 - Encounter for gynecological examination (general) (routine) without abnormal findings Category: Medical (4) Hx of abdominoplasty: Comment: And in August 2024 liposuction and [place]o plasty in [place], needed to be seen at [facility] 2' months later secondary to rejection of Lipo and suctioning off of liquid.... Code(s): Z98.890 - Other specified postprocedural states Category: Surgical (5) Encounter for screening examination for sexually transmitted disease: Code(s): Z11.3 - Encounter for screening for infections with a predominantly sexual mode of transmission Category: Medical Plan -----Discussed in this visit the following: healthy balanced diet, regular and consistent exercise, getting recommended health screens, doing the best she can for her particular health concerns, kegel exercises, pap smear screening and followup recommendations, mammography screening and SBE, normal changes in cycles in her life stage--- . Reviewed her history of her surgeries review that mammograms will start when she is age 42 reviewed her care with her primary care provider in her monitoring of her high blood pressure reviewed her lack of need for any control at this time and safer sex which she is very aware of she has feeling more less okay with things with her body now though she is not entirely happy with the scar tissue. Since she will be due for Pap smear this coming August I did her Pap smear today along with testing for STIs because sometimes she notices an odor she did have sex in December with a friend though she says she used condoms. She also did want to get blood work for STIs and I have ordered those as well we will see her in a year she is happy that her periods are back to normal now she is more unless happy with her weight now. Orders: Orders Hepatitis B Surface Antigen Today Z01.419 - Encounter for gynecological examination (general) (routine) without abnormal findings, Z11.3 - Encounter for screening for infections with a predominantly sexual mode of transmission, Z98.890 - Other specified postprocedural states, Z98.891 - History of uterine scar from previous surgery Hepatitis C Antibody Today Z01.419 - Encounter for gynecological examination (general) (routine) without abnormal findings, Z11.3 - Encounter for screening for infections with a predominantly sexual mode of transmission, Z98.890 - Other specified postprocedural states, Z98.891 - History of uterine scar from previous surgery Syphilis Screen Today Z01.419 - Encounter for gynecological examination (general) (routine) without abnormal findings, Z11.3 - Encounter for screening for infections with a predominantly sexual mode of transmission, Z98.890 - Other specified postprocedural states, Z98.891 - History of uterine scar from previous surgery HIV Ab/Ag Today Z01.419 - Encounter for gynecological examination (general) (routine) without abnormal findings, Z11.3 - Encounter for screening for infections with a predominantly sexual mode of transmission, Z98.890 - Other specified postprocedural states, Z98.891 - History of uterine scar from previous surgery Coding Level of Care Code Est Pt Prev Care 18-39y(34501) Diagnoses History of 2 sections Z98.891 H/O bilateral breast reduction surgery Z98.890 Well woman exam with routine gynecological exam Z01.419 Hx of abdominoplasty Z98.890 Encounter for screening examination for sexually transmitted disease Z11.3
[2025-04-25 13:21] VITALS: BP 118/78; BMI 28.3
--- OUTSIDE RECORDS SUMMARY | 2025-04-25 16:55 | XMS_ITS ---
Author Name [facility] Organization Unknown Results Test Name/Text Value Interpretation Date Range Source Calcium SerPl-mCnc 8.2 mg/dL Below low normal 03/04/2025 8.4 - 10.2 [facility] Sodium SerPl-sCnc 139.0 mmol/L 03/04/2025 135 - 14 5 [facility] Potassium SerPl-sCnc 4.0 mmol/L 03/04/2025 3.5 - 5 .1 [facility] Chloride SerPl-sCnc 105.0 mmol/L 03/04/2025 98 - 1 07 [facility] Glucose SerPl-mCnc 94.0 mg/dL 03/04/2025 70 - 199 [facility] CO2 SerPl-sCnc 27.0 mmol/L 03/04/2025 24 - 32 [facility] BUN/Creat SerPl 24.0 Above high normal 03/04/2025 12 - 20 [facility] BUN SerPl-mCnc 12.0 mg/dL 03/04/2025 7 - 17 [facility] eGFRcr SerPlBld CKD-EPI 2020 124.0 mL/min/1.73m2 03/04/2025 - [facility] Anion Gap SerPl Calc-sCnc 7.0 03/04/2025 5 - 14 [facility] Creat SerPl-mCnc 0.5 mg/dL 03/04/2025 0.5 - 1 CT [facility] Phosphate SerPl-mCnc 3.4 mg/dL 03/04/2025 2.5 - 4. 5 [facility] Magnesium SerPl-mCnc 1.9 mg/dL 03/04/2025 1.7 - 2. 8 [facility] Erythrocyte DistWidth Bld Auto 16.0 % 03/04/2025 12.1 - 16.2 [facility] Eosinophil # Bld Auto 0.1 K/mcL 03/04/2025 0 - 0.5 [facility] Hgb Bld-mCnc 12.5 g/dL 03/04/2025 12.5 - 16 [facility] Hct VFr Bld Auto 37.9 % 03/04/2025 37 - 47 [facility] RBC # Bld Auto 5.15 M/mcL 03/04/2025 4.2 - 5.4 [facility] MCH RBC Qn Auto 24.3 pcg Below low normal 03/04/2025 25 - 3 3 [facility] MCHC RBC Auto-EntMCnc 33.0 g/dL 03/04/2025 32 - 36 [facility] Platelet # Bld Auto 267.0 K/mcL 03/04/2025 150 - 4 50 [facility] Lymphocytes NFr Bld Auto 28.3 % 03/04/2025 20 - 48 [facility] Basophils NFr Bld Auto 0.9 % 03/04/2025 0 - 2 [facility] MCV RBC Auto 73.6 FL Below low normal 03/04/2025 78 - 100 [facility] WBC # Bld Auto 6.6 K/mcL 03/04/2025 4 - 10.5 [facility] PMV Bld Auto 8.3 FL 03/04/2025 7.4 - 11.4 [facility] Monocytes NFr Bld Auto 6.8 % 03/04/2025 2 - 12 [facility] Basophils # Bld Auto 0.1 K/mcL 03/04/2025 0 - 0.2 [facility] Lymphocytes # Bld Auto 1.9 K/mcL 03/04/2025 1 - 3.2 [facility] Neutrophils # Bld Auto 4.1 K/mcL 03/04/2025 1.8 - 7.8 [facility] Eosinophil NFr Bld Auto 1.8 % 03/04/2025 0 - 6 [facility] Neutrophils NFr Bld Auto 62.2 % 03/04/2025 44 - 74 [facility] Monocytes # Bld Auto 0.4 K/mcL 03/04/2025 0 - 0.8 [facility] Vancomycin Trough SerPl-mCnc 5.5 mcg/mL Below low normal 03/03/2025 10 - 20 [facility] Magnesium SerPl-mCnc 2.0 mg/dL 03/03/2025 1.7 - 2. 8 [facility] Phosphate SerPl-mCnc 3.2 mg/dL 03/03/2025 2.5 - 4. 5 [facility] ALP SerPl-cCnc 54.0 unit/L 03/03/2025 34 - 104 [facility] Globulin Ser Calc-mCnc 2.4 g/dL 03/03/2025 2.3 - 3.5 [facility] Bilirub Direct SerPl-mCnc 0.0 mg/dL 03/03/2025 0 - 0.2 [facility] Prot SerPl-mCnc 6.0 g/dL Below low normal 03/03/2025 6.4 - 8.5 [facility] Albumin SerPl-mCnc 3.6 g/dL 03/03/2025 3.5 - 5 [facility] AST SerPl-cCnc 11.0 unit/L 03/03/2025 5 - 40 [facility] Albumin/Glob SerPl 1.5 03/03/2025 [facility] ALT SerPl-cCnc 6.0 unit/L Below low normal 03/03/2025 7 - 52 [facility] Bilirub SerPl-mCnc 0.5 mg/dL 03/03/2025 0.3 - 1 [facility] CO2 SerPl-sCnc 26.0 mmol/L 03/03/2025 24 - 32 [facility] Creat SerPl-mCnc 0.5 mg/dL 03/03/2025 0.5 - 1 [facility] Sodium SerPl-sCnc 138.0 mmol/L 03/03/2025 135 - 14 5 [facility] Potassium SerPl-sCnc 3.8 mmol/L 03/03/2025 3.5 - 5 .1 [facility] BUN/Creat SerPl 22.0 Above high normal 03/03/2025 12 - 20 [facility] eGFRcr SerPlBld CKD-EPI 2020 124.0 mL/min/1.73m2 03/03/2025 - [facility] Glucose SerPl-mCnc 80.0 mg/dL 03/03/2025 70 - 199 [facility] Anion Gap SerPl Calc-sCnc 8.0 03/03/2025 5 - 14 [facility] BUN SerPl-mCnc 11.0 mg/dL 03/03/2025 7 - 17 [facility] Calcium SerPl-mCnc 7.9 mg/dL Below low normal 03/03/2025 8.4 - 10.2 [facility] Chloride SerPl-sCnc 104.0 mmol/L 03/03/2025 98 - 1 07 [facility] MCH RBC Qn Auto 24.4 pcg Below low normal 03/03/2025 25 - 3 3 [facility] Basophils NFr Bld Auto 0.4 % 03/03/2025 0 - 2 [facility] MCHC RBC Auto-EntMCnc 33.2 g/dL 03/03/2025 32 - 36 [facility] Monocytes # Bld Auto 0.4 K/mcL 03/03/2025 0 - 0.8 [facility] Neutrophils # Bld Auto 4.7 K/mcL 03/03/2025 1.8 - 7.8 [facility] Lymphocytes NFr Bld Auto 27.9 % 03/03/2025 20 - 48 [facility] Basophils # Bld Auto 0.0 K/mcL 03/03/2025 0 - 0.2 [facility] PMV Bld Auto 8.6 FL 03/03/2025 7.4 - 11.4 [facility] Hct VFr Bld Auto 38.6 % 03/03/2025 37 - 47 [facility] RBC # Bld Auto 5.25 M/mcL 03/03/2025 4.2 - 5.4 [facility] Hgb Bld-mCnc 12.8 g/dL 03/03/2025 12.5 - 16 [facility] Lymphocytes # Bld Auto 2.0 K/mcL 03/03/2025 1 - 3.2 [facility] Neutrophils NFr Bld Auto 64.8 % 03/03/2025 44 - 74 [facility] Eosinophil NFr Bld Auto 1.9 % 03/03/2025 0 - 6 [facility] Erythrocyte DistWidth Bld Auto 15.7 % 03/03/2025 12.1 - 16.2 [facility] MCV RBC Auto 73.6 FL Below low normal 03/03/2025 78 - 100 [facility] Monocytes NFr Bld Auto 5.0 % 03/03/2025 2 - 12 [facility] Eosinophil # Bld Auto 0.1 K/mcL 03/03/2025 0 - 0.5 [facility] Platelet # Bld Auto 285.0 K/mcL 03/03/2025 150 - 4 50 [facility] WBC # Bld Auto 7.3 K/mcL 03/03/2025 4 - 10.5 [facility] History of Medication Use Medication Directions Dispensed Refills Start Date End Date Stat cefdinir (OMNICEF) 300 mg capsule Take 1 capsule (300 mg total) by mouth 2 (two) times a day for 10 days. 03/04/2025 aborted doxycycline (VIBRAMYCIN) 100 mg capsule Take 1 capsule (100 mg total) by mouth 2 (two) times a day for 10 days. Take with at least 8 ounces (large glass) of water, do not lie down for 30 minutes after. Administer 2 hours before or after multivitamins, antacids, or other products containing polyvalent cations (i.e., calcium, iron, magnesiu 03/04/2025 aborted vancomycin (VANCOCIN) 1,250 mg in sodium chloride 0.9 % 250 mL IVPB 1,250 mg, intravenous, at 166.7 mL/hr, Administer over 90 Minutes, Every 8 hours, First dose (after last modification) on [place] 03/03/25 at 2000, For 6 days, Indication: Skin/Soft Tissue 03/04/2025 active cefTRIAXone (ROCEPHIN) 1 g in sterile water 10 mL IV syringe 1 g, intravenous, Administer over 3 Minutes, Every 24 hours, First dose (after last reorder) on [place] 03/03/25 at 0900, For 7 doses, Do not administer simultaneously with any calcium containing solutions via a Y-site in any patient., Indication: Skin/Soft Tissue 03/02/2025 active acetaminophen (TYLENOL) tablet 650 mg 650 mg, oral, Every 6 hours PRN, mild pain, Starting on Fri03/02/25 at 0845 03/02/2025 active enoxaparin (LOVENOX) injection 40 mg 40 mg, subcutaneous, Every 24 hours scheduled, First dose on Fri03/02/25 at 0900, Indication: VTE/PE Prophylaxis 03/02/2025 active naloxone (NARCAN) injection 0.04 mg 0.04 mg, intravenous, As needed, opioid reversal, IV Push every 1 min for 10 doses, Starting on Fri03/02/25 at 0845, For 10 doses, To Dilute: -Use 0.4 mg/mL vial , withdraw 1 mL and add 9 mL NS -FOLLOWING DILUTION, dose of 0.04 mg = 1 mL For PARTIAL Opioid Reversal: -For respiratory rate LESS than 03/02/2025 active ondansetron ODT (ZOFRAN-ODT) disintegrating tablet 4 mg [Order 1 Start] Name: ondansetron ODT (ZOFRAN-ODT) disintegrating tablet 4 mg Signed Summary: 4 mg, oral, Every 8 hours PRN, vomiting, nausea, Starting on Fri03/02/25 at 0845, -Give IV if patient is unable to take orally. -If inadequate response within 30 minutes, proceed to next-line agent or conta 03/02/2025 active oxyCODONE (ROXICODONE) immediate release tablet 10 mg 10 mg, oral, Every 4 hours PRN, severe pain or when therapies for moderate pain were not effective, Starting on Fri03/02/25 at 0846 03/02/2025 active oxyCODONE (ROXICODONE) immediate release tablet 5 mg 5 mg, oral, Every 4 hours PRN, moderate pain or when therapies for mild pain were not effective, Starting on Fri03/02/25 at 0846 03/02/2025 active polyethylene glycol (MIRALAX) packet 17 g 17 g, oral, Daily PRN, constipation, Starting on Fri03/02/25 at 0845, Bowel Regimen - for prevention of constipation 03/02/2025 active sodium chloride 0.9 % flush 10 mL [Order 1 Start] Name: Insert peripheral IV Signed Summary: STAT, Once, On Fri03/02/25 at 0846, For 1 occurrence [Order 1 End] [Order 2 Start] Name: Maintain IV access Signed Summary: Until discontinued, Starting on Fri03/02/25 at 0846, Until Specified [Order 2 End] [Order 3 Start] Name: Saline lock 03/02/2025 active diclofenac (Voltaren Arthritis Pain) 1 % topical gel Apply 2 g topically 4 (four) times a day. 02/07/2025 active phentermine 37.5 mg capsule Take 1 capsule (37.5 mg total) by mouth 1 (one) time each day before breakfast. Max Daily Amount: 37.5 mg 01/13/2025 active topiramate (Topamax) 100 mg tablet Take 1 tablet (100 mg total) by mouth at bedtime. 01/13/2025 active sertraline (ZOLOFT) 25 mg tablet 1 daily for 2 weeks then 2 daily 11/11/2024 active amLODIPine (NORVASC) 5 mg tablet TAKE 1 TABLET BY MOUTH EVERY DAY 09/02/2024 aborted cetirizine (ZyrTEC) 10 mg tablet Take 1 tablet (10 mg total) by mouth 1 (one) time each day. 08/12/2024 active fluticasone propionate (FLONASE) 50 mcg/actuation nasal spray 2 Sprays by Each Nare route daily. 03/10/2023 active calcium carbonate (CALCIUM ORAL) Take by mouth. active Allergies Allergen Reaction Severity Comment Documented Date Source Statu s AMOXICILLIN RASH Vaginal area, y east infection 02/22/2016 [facility] active Problems Problem Status Onset Date Problem Type Date of Resoluti on Source HTN (hypertension) active 2018-05-06 ProblemAct [facility] Overweight (BMI 25.0-29.9) active 2017-12-03 ProblemAct [facility] Leukocytosis active 2025-03-02 ProblemAct [facility] Renal stones active 2025-03-[address] Problem[address] [facility] Other constipation active 2024-07-23 ProblemAct [facility] Erythrocytosis active 2022-02-[address] [facility] PCOS (polycystic ovarian syndrome) active 2018-05-06 ProblemAct [facility] Depression, major, recurrent, mild (CMS/HCC V24) active 2015-03-14 ProblemAct [facility] BRITTNI II (cervical intraepithelial neoplasia II) active 2013-12-01 ProblemAct [facility] 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 active 2025-03-02 ProblemAct [facility] Immunizations Vaccine Date Source Lot Number Status Influenza trivalent, 0.5mL, preservative free (Fluarix; FluLaval; Fluzone) ages 6mo and older (Afluria) 3 years and older [facility]20[id number] completed Tdap Tetanus diptheria acell ular pertussis (Boostrix; Adacel) 7yo and older 12/03/2023 [facility] [id number] completed Influenza, Unspecified 03/05/2021 [facility] Influenza Quadrivalent, 0.5m l, preservative free (Fluarix; FluLaval; Fluzone) ages 6mo and older (Afluria) 3yo and older 03/02/2021 [facility] [id number] completed Pfizer SARS-CoV-2 COVID-19, mRNA, LNP-S, preservative free 12/20/2020 [facility] Pfizer SARS-CoV-2 COVID-19, mRNA, LNP-S, preservative free 11/30/2020 [facility] [id number] completed Influenza Quadravalent, MDCK , 0.5ml, preservative free (Flucelvax) 6mo and older 03/13/2020 [facility] [id number] completed PPD Test 07/19/2015 [id number] completed HPV, Quadrivalent 12/01/2013 [id number] complet ed Tdap Tetanus diptheria acell ular pertussis (Boostrix; Adacel) 7yo and older 11/17/2013 [facility] [id number] completed Encounters Encounter Type Encounter Reason Primary Diagnosis Location Date Inpatient transfer Postprocedural h ematoma of a musculoskeletal structure following a musculoskeletal system procedure [facility] 03/02/2025 Care Team Organization Name Specialty Phone Email Start Date End [facility]/02/2025 [facility] 03/02/2025
--- OUTSIDE RECORDS SUMMARY | 2025-04-25 16:55 | XMS_ITS | Clinical Summary ---
Author Organization [facility] Address [address] [place] [address] Phone Care Team Providers Care Sr. Unix System Administrator Name Role Phone Shanice Duke MD Primary Care Provider Allergies Active Allergy Reactions Criticality Noted Date Comments Amoxicillin Rash 02/22/2016 Vaginal area, yeast infection Medications calcium carbonate (CALCIUM ORAL) Take by mouth. Active fluticasone propionate (FLONASE) 50 mcg/actuation nasal spray 2 Sprays by Each Nare route daily. 3 Active CHOLECALCIFEROL , VITAMIN D3, ORAL Take by mouth daily. Active cetirizine (ZyrTEC) 10 mg tablet Take 1 tablet (10 mg total) by mouth 1 (one) time each day. 30 each 5 5 Active sertraline (ZOLOFT) 25 mg tablet 1 daily for 2 weeks then 2 daily 42 each 5 Active phentermine 37.5 mg capsuleIndicati ons:Over weight Take 1 capsule (37.5 mg total) by mouth 1 (one) time each day before breakfast. Max Daily Amount: 37.5 mg 30 each 3 5 Active topiramate (Topamax) 100 mg tabletIndicatio ns:Over weight Take 1 tablet (100 mg total) by mouth at bedtime. 30 each 2 5 Active diclofenac (Voltaren Arthritis Pain) 1 % topical gel Apply 2 g topically 4 (four) times a day. 150 g 5 Active Active Problems Problem Noted Date Diagnosed Date Renal stones 03/02/2025 Assessment & Plan (03/02/2025 11:20 AM EDT): Noted on CT Scan. Asymptomatic - advised outpatient follow up with PCP Other constipation 07/23/2024 Erythrocytosis 02/25/2022 HTN (hypertension) 05/06/2018 Assessment & Plan (03/02/2025 11:20 AM EDT): Continue amlodipine PCOS (polycystic ovarian syndrome) 05/06/2018 Overview (08/06/2024): Assessment & Plan (03/02/2025 11:20 AM EDT): Right ovarian cyst measuring 2.3 cm. Overweight (BMI 25.0-29.9) 12/03/2017 Assessment & Plan (03/02/2025 11:20 AM EDT): On phenteramine and topiramate managed by Dr Scottie Trinh as outpatient. Depression, major, recurrent, mild (CMS/HCC V24) 03/14/2015 Assessment & Plan (03/02/2025 11:20 AM EDT): Was on sertaline and quetiapine. Not taking any meds currently BRITTNI II (cervical intraepithelial neoplasia II) 0 12/01/2013 Overview (02/27/2024): Tx'd with cryo in [place] Resolved Problems Problem Noted Date Diagnosed Date Resolved Date Postoperative hematoma of mu sculoskeletal structure following musculoskeletal procedure 03/02/2025 04/06/2025 Assessment & Plan (03/02/2025 11:20 AM EDT): CT A/P 03/02 showed Fluid collection in the right gluteal region measuring 4.3 x 3 cm may represent hematoma. Focal area of probable fat infarct in the left gluteal region measuring 4 x 1.9 cm. - Evaluated by plastic surgery team who do not plan on surgical intervention at this time. Recommending IR eval for aspiration and culture - IR consulted for aspiration. Orders placed for fluid culture gram stain and cell count - Vanc, Ceftriaxone - Pain management with PRN tylenol, ibuprofen and oxycodone Leukocytosis 03/02/2025 04/06/2025 Assessment & Plan (03/02/2025 11:20 AM EDT): CT A/P 03/02 showed Fluid collection in the right gluteal region measuring 4.3 x 3 cm may represent hematoma. Focal area of probable fat infarct in the left gluteal region measuring 4 x 1.9 cm. - Evaluated by plastic surgery team who do not plan on surgical intervention at this time. Recommending IR eval for aspiration and culture - IR consulted for aspiration. Orders placed for fluid culture gram stain and cell count - Vanc, Ceftriaxone - Pain management with PRN tylenol, ibuprofen and oxycodone Macromastia 10/31/2017 07/23/2024 Encounters Date Type Department Care Team Description 04/06/2025 10:30 AM EST Office Visit Adult Medicine [address] [phone] Shanice Duke MD Cutaneous abscess of buttock (Primary Dx); Primary hypertension; Gluteal pain 03/29/2025 Telephone Adult Medicine [address] [phone] Shanice Duke MD 03/22/2025 Telephone Adult Medicine [address] [phone] Fabiola Vallejo RN 03/02/2025 3:09 AM EDT - 03/04/2025 1:35 PM EDT Hospital Encounter [facility] [place] [phone] Brigette [facility] DO Feit, Binyamin, MD Kamath, Nitisha, MD Awan, Brooj, MD 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 (Primary Dx) Discharge Disposition: Home or Self Care 03/01/2025 7:55 PM EDT - 03/02/2025 2:20 AM EDT Emergency [facility] Emergency [address] [place] [phone] Abscess, gluteal, right (Primary Dx) Discharge Disposition: Another Health Care Institution Not Defined 02/07/2025 2:00 PM EDT Consult Orthopedic Surgery - [address] [phone] Alan Ac PA Right carpal tunnel syndrome (Primary Dx); Right wrist pain; De Quervain's tenosynovitis, right from Last 3 Months Immunizations Immunization Administration Dates Next Due HPV, Quadrivalent 12/01/2013 Influenza Quadravalent, MDCK , 0.5ml, preservative free (Flucelvax) 6mo and older 03/13/2020 Influenza Quadrivalent, 0.5m l, preservative free (Fluarix; FluLaval; Fluzone) ages 6mo and older (Afluria) 3yo and older 03/02/2021 Influenza trivalent, 0.5mL, preservative free (Fluarix; FluLaval; Fluzone) ages 6mo and older (Afluria) 3 years and older 02/26/2024 Influenza, Unspecified 03/05/2021 PPD Test 07/19/2015 [employer] SARS-CoV-2 COVID-19, mRNA, LNP-S, preservative free 12/20/2020,11/30/2020 Tdap Tetanus diptheria acell ular pertussis (Boostrix; Adacel) 7yo and older 12/03/2023,11/17/2013 Surgical History Surgery Date Site/Laterality Comments SECTION 04/29/05, 09/29/09 BELT ABDOMINOPLASTY 05/26/2019 - 05/25/2020 tummy tuck BREAST REDUCTION 05/26/2019 - 05/25/2020 Medical History Medical History Date Comments Depression, major, recurrent, mild (CMS/HCC V24) 03/14/2015 Hypertension 05/06/2018 BRITTNI II (cervical intraepithelial neoplasia II) Tx'd with cryo in [place] PCOS (polycystic ovarian syndrome) 05/06/2018 Severe obesity (BMI 35.0-39. 9) with comorbidity (CMS/HCC V24, CMS/HCC V28) 12/03/2017 Family History Medical History Relation Name Comments Uterine cancer Aunt pat 40 Hypertension Brother x 1 Cataracts Father accidental deat h at age 50 Alzheimer's disease Maternal Grandfather Diabetes Maternal Grandmother HTN Diabetes Mother cholesterol, HT N Alzheimer's disease Paternal Grandfather Heart attack Paternal Grandmother diabete s, glaucoma Prostate cancer Uncle pat 45 Relation Name Status Comments Aunt pat 40 Alive Brother x 1 Alive Father Maternal Grandfather Maternal Grandmother Alive Mother Alive Paternal Grandfather Paternal Grandmother Uncle pat 45 Alive Social History Tobacco Use Types Packs/Day Years Used Date Smoking Tobacco: Former Cigarettes Smokeless Tobacco: Never Tobacco Cessation:Counseling Given: Not Answered Comments:Started age 20; 1 cig max per QD; quit 2013 Alcohol Use Standard Drinks/Week Comments No 0 (1 standard drink = 0.6 oz pur e alcohol) Housing Instability Answer Date Recorde d Are you worried that in the next 2 months you may not have stable housing? No 07/23/2024 Food Access & Nutrition Answer Date Rec orded Do you have access to a vari ety of food including fruits and vegetables? Yes 07/23/2024 Health Literacy Answer Date Recorded How often do you need to hav e someone help you when you read instructions, pamphlets, or other written material from your doctor or pharmacy? Never 07/23/2024 Caregiver: How often do you need to have someone help you when you read instructions, pamphlets, or other written material from your doctor or pharmacy? Not on file 07/23/2024 Financial Risk Answer Date Recorded How hard is it for you to pa y for the very basics like food, housing, medical care, and air conditioning / heating? Somewhat hard 07/23/2024 Transportation Answer Date Recorded Has the lack of transportati on kept you from meetings, work, or from getting things needed for daily living? No Has the lack of transportati on kept you from medical appointments or from getting medications? No 07/23/2024 Social Isolation Answer Date Recorded How often do you feel lonely or isolated from th ose around you? Always 07/23/2024 Food Risk Answer Date Recorded Within the past 12 months we worried whether our food would run out before we got money to buy more. Sometimes true 025 Within the past 12 months th e food we bought just didn't last and we didn't have money to get more. Sometimes true 07/23/2024 Dependent Care Answer Date Recorded Do you need help finding or paying for care for your loved ones. For example, child welfare consultant or elderly care for an older adult? No 07/23/2024 Education Answer Date Recorded Do you think completing more education or training, like finishing a GED, going to college, or learning a trade, would be helpful for you? Yes 07/23/2024 Employment and Income Answer Date Recor ded During the last four weeks, have you been actively looking for work? Yes 07/23/2024 Living Situation Answer Date Recorded What is your living situation? Unrecognized valu e 07/23/2024 Education Answer Date Recorded What is the highest level of school you have completed or the highest degree you have received? 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 file Not on file Not on file Obstetrics History Last Filed Vital Signs Vital Sign Reading Time Taken Comments Blood Pressure 134/80 04/06/2025 10:23 AM EST Pulse 99 04/06/2025 10:23 AM EST Temperature 36.1 C (96.9 F) 04/06/2025 10:23 AM EST Respiratory Rate 14 04/06/2025 10:23 AM EST Oxygen Saturation 99% 04/06/2025 10:23 AM EST Inhaled Oxygen Concentration - - Weight 69.5 kg (153 lb 4.8 oz) 04/06/2025 10:23 AM EST Height 152.4 cm (5') 04/06/2025 10:23 AM EST Body Mass Index 29.94 04/06/2025 10:23 AM EST Plan of Treatment Upcoming Encounters Date Type Department Care Team (Late st Contact Info) Description 06/30/2025 8:00 AM EST Office Visit Bariatric Surgery - [address] [place] [address] Scottie Trinh MD [address] [place] [phone] 07/07/2025 10:15 AM EST Office Visit Bariatric Surgery - [address] [place] [phone] Scottie Trinh MD [address] [place] [facility] [place] [phone] Health Maintenance Due Date Last Done Comments Hepatitis B Vaccines (1 of 3 - 19+ 3-dose series) 2006 HPV Vaccines (2 - 3-dose series) 12/29/2013 12/01/2013 Cervical Cancer Screening: Pap Smear 06/23/2021 06/23/2018, 06/23/2018 COVID-19 Vaccine ( - season) 2025 12/20/2020, 11/30/2020 Influenza Vaccine (#1) 2025 , 03/05/2021, 03/02/2021, Additional history exists Social Influencers of Health Screening 07/23/2025 07/23/2024 Hypertension/CHF/CAD Annual BMP Blood Test 03/04/2026 03/04/2025, 03/03/2025, 03/01/2025, Additional history exists Cholesterol Screening (Lipid Panel) 07/23/2029 07/23/2024, 01/03/2022 DTaP,Tdap,and Td Vaccines (3 - Td or Tdap) 12/02/2033 12/03/2023, 11/17/2013 RSV Immunization Adult Patients (1 - 1-dose 75+ series) 2062 Hepatitis C Screening Completed 06/23/2018 Depression Screening Completed 07/23/2024 HIV Screening Completed 08/12/2024, 03/13/2020 HIB Vaccines Aged Out No longer eligi ble based on patient's age to complete this topic Hepatitis A Vaccines Aged Out No long er eligible based on patient's age to complete this topic IPV Vaccines Aged Out No longer eligi ble based on patient's age to complete this topic MMR Vaccines Aged Out No longer eligi ble based on patient's age to complete this topic Meningococcal ACWY Vaccine Aged Out N o longer eligible based on patient's age to complete this topic Meningococcal B Vaccine Aged Out No l onger eligible based on patient's age to complete this topic Pneumococcal Vaccine: Pediatrics (0 to 5 Years) and At-Risk Patients (6 to 49 Years) Aged Out No longer eligible based on patient's age to complete this topic RSV Immunization Patients Under 20 months Aged Out No longer eligible based on patient's age to complete this topic Varicella Vaccines Aged Out No longer eligible based on patient's age to complete this topic Procedures Procedure Name Priority Date/Time Associated Diagnosis Comments CBC WITH AUTO DIFFERENTIAL Routine 03/04/2025 8:36 AM EDT CBC AND DIFFERENTIAL Routine 03/04/2025 8:36 AM EDT BASIC METABOLIC PANEL Routine 03/04/2025 8:36 AM EDT MAGNESIUM Routine 03/04/2025 8:36 AM EDT PHOSPHORUS Routine 03/04/2025 8:36 AM EDT VANCOMYCIN, TROUGH Timed 03/03/2025 6: 18 PM EDT CBC WITH AUTO DIFFERENTIAL Routine 03/03/2025 10:51 AM EDT CBC AND DIFFERENTIAL Routine 03/03/2025 10:51 AM EDT PHOSPHORUS Routine 03/03/2025 10:51 AM EDT MAGNESIUM Routine 03/03/2025 10:51 AM EDT HEPATIC FUNCTION PANEL Routine 10:51 AM EDT BASIC METABOLIC PANEL Routine 03/03/2025 10:51 AM EDT CULTURE WOUND DEEP Routine 03/02/2025 4: 04 PM EDT 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 US ASP ABSCESS/HEMATOMA/BULLA /CYST Routine 03/02/2025 4:[address] OUTSIDE IMAGES (NO INTERPRETATION) Routine 03/02/2025 1:37 PM EDT CULTURE BLOOD STAT 03/02/2025 6:50 AM EDT CULTURE BLOOD STAT 03/02/2025 6:[address] ABDOMEN PELVIS W CONTRAST STAT 03/01/2025 9:41 PM EDT POC , URINE DIAGNOSTIC STAT 03/01/2025 8:49 PM EDT CBC WITH AUTO DIFFERENTIAL STAT 03/01/2025 8:46 PM EDT COMPREHENSIVE METABOLIC PANEL STAT 03/01/2025 8:46 PM EDT CBC AND DIFFERENTIAL STAT 03/01/2025 8:46 PM EDT XR WRIST 3+ VIEWS RIGHT Routine 02/07/2025 1:55 PM EDT Right wrist pain HIV 1, 2 ANTIBODY, P24 ANTIGEN WITH REFLEX TO DIFFERENTIATION Routine 08/12/2024 11:01 AM EDT Screen for STD (sexually transmitted disease) LIPID PANEL WITH REFLEX TO DIRECT LDL Routine 07/23/2024 10:48 AM EST Lipid screening HM HEPATITIS C SCREENING Routine 06/23/2018 PAP SMEAR Routine 06/23/2018 from Last 3 Months or Most Recently Relevant to Health Maintenance Results * (ABNORMAL) CBC auto differential (03/04/2025 8:36 AM EDT) Only the most recent of3 resultswithin the time period is included. WBC 6.6 4.0 - 10.5 K/[facility] LAB HEMETOLOGY METHOD 03/04/2025 8:[address] [facility] RBC 5.15 4.20 - 5.40 M/mcL LAB HEMETOLOGY METHOD 03/04/2025 8:56 AM EDT [facility] Hemoglobin 12.5 12.5 - 16.0 g/dL LAB HEMETOLOGY METHOD 03/04/2025 8:56 AM EDT [facility] Hematocrit 37.9 37.0 - 47.0 % LAB HEMETOLOGY METHOD 03/04/2025 8:56 AM EDT [facility] MCV 73.6(L) 78.0 - 100.0 FL LAB HEMETOLOGY METHOD 03/04/2025 8:56 AM EDT [facility] MCH 24.3(L) 25.0 - 33.0 pcg LAB HEMETOLOGY METHOD 03/04/2025 8:56 AM EDT [facility] MCHC 33.0 32.0 - 36.0 g/dL LAB HEMETOLOGY METHOD 03/04/2025 8:56 AM EDT [facility] RDW 16.0 12.1 - 16.2 % LAB HEMETOLOGY METHOD 03/04/2025 8:56 AM EDT [facility] Platelets 267 150 - 450 K/mcL LAB HEMETOLOGY METHOD 03/04/2025 8:56 AM EDT [facility] MPV 8.3 7.4 - 11.4 FL LAB HEMETOLOGY METHOD 03/04/2025 8:56 AM EDT [facility] Neutrophils Relative 62.2 44.0 - 74.0 % LAB HEMETOLOGY METHOD 03/04/2025 8:56 AM EDT [facility] Lymphocytes Relative 28.3 20.0 - 48.0 % LAB HEMETOLOGY METHOD 03/04/2025 8:56 AM EDT [facility] Monocytes Relative 6.8 2.0 - 12.0 % LAB HEMETOLOGY METHOD 03/04/2025 8:56 AM EDT [facility] Eosinophils Relative 1.8 0.0 - 6.0 % LAB HEMETOLOGY METHOD 03/04/2025 8:56 AM EDT [facility] Basophils Relative 0.9 0.0 - 2.0 % LAB HEMETOLOGY METHOD 03/04/2025 8:56 AM EDT [facility] Neutrophils Absolute 4.10 1.80 - 7.80 K/mcL LAB HEMETOLOGY METHOD 03/04/2025 8:56 AM EDT [facility] Lymphocytes Absolute 1.90 1.00 - 3.20 K/mcL LAB HEMETOLOGY METHOD 03/04/2025 8:56 AM EDT [facility] Monocytes Absolute 0.40 0.00 - 0.80 K/mcL LAB HEMETOLOGY METHOD 03/04/2025 8:56 AM EDT [facility] Eosinophils Absolute 0.10 0.00 - 0.50 K/mcL LAB HEMETOLOGY METHOD 03/04/2025 8:56 AM EDT [facility] Basophils Absolute 0.10 0.00 - 0.20 K/mcL LAB HEMETOLOGY METHOD 03/04/2025 8:56 AM EDT [facility] Blood Venous blood specimen / Unknown Venipuncture / Unknown 03/04/2025 8:36 AM EDT 03/04/2025 8:45 AM EDT us Lizbeth Lau MD LAB BLOOD ORDERABLES Final Resul t [facility] [address] [place] [address], * Phosphorus (03/04/2025 8:36 AM EDT) Only the most recent of2 resultswithin the time period is included. [facility] Signature Phosphorus 3.4 2.5 - 4.5 mg/dL LAB CHEMISTRY METHOD 03/04/2025 9:23 AM EDT [facility] Blood Venous blood specimen / Unknown Venipuncture / Unknown 03/04/2025 8:36 AM EDT 03/04/2025 8:45 AM EDT us Lizbeth Lau MD LAB BLOOD ORDERABLES Final Resul t Performing Organization Address City/[facility]/ZIP Co de Phone Number [facility] [address] [place] [address], [place] [phone] * Magnesium (03/04/2025 8:36 AM EDT) Only the most recent of2 resultswithin the time period is included. Magnesium 1.9 1.7 - 2.8 mg/dL LAB CHEMISTRY METHOD 03/04/2025 9:23 AM EDT [facility] Blood Venous blood specimen / Unknown Venipuncture / Unknown 03/04/2025 8:36 AM EDT 03/04/2025 8:45 AM EDT us Lizbeth Lau MD LAB BLOOD ORDERABLES Final Resul t Performing Organization Address City/[facility]/ZIP Co de Phone Number [facility] [address] [place] [address], [place] [phone] * (ABNORMAL) Basic metabolic panel (03/04/2025 8:36 AM EDT) Only the most recent of2 resultswithin the time period is included. Sodium 139 135 - 145 mmol/L LAB CHEMISTRY METHOD 03/04/2025 9:23 AM EDT [facility] Potassium 4.0 3.5 - 5.1 mmol/L LAB CHEMISTRY METHOD 03/04/2025 9:23 AM EDT [facility] Chloride 105 98 - 107 mmol/L LAB CHEMISTRY METHOD 03/04/2025 9:23 AM EDT [facility] CO2 27 24 - 32 mmol/L LAB CHEMISTRY METHOD 03/04/2025 9:23 AM EDT [facility] Anion Gap 7 5 - 14 LAB CHEMISTRY METHOD 03/04/2025 9:23 AM EDT [facility] Glucose 94 70 - 199 mg/dL LAB CHEMISTRY METHOD 03/04/2025 9:23 AM EDT [facility] BUN 12 7 - 17 mg/dL LAB CHEMISTRY METHOD 03/04/2025 9:23 AM EDT [facility] Creatinine 0.50 0.50 - 1.00 mg/dL LAB CHEMISTRY METHOD 03/04/2025 9:23 AM EDT [facility] eGFR 124 >=60 mL/min/1. 73m2 LAB CHEMISTRY METHOD 03/04/2025 9:23 AM EDT [facility] Comment:Calculation based on the Chronic Kidney Disease Epidemiology Collaboration (CKD-EPI) equation refit without adjustment for race. BUN/Creatinine Ratio 24.0(H) 12.0 - 20.0 LAB CHEMISTRY METHOD 03/04/2025 9:23 AM EDT [facility] Calcium 8.2(L) 8.4 - 10.2 mg/dL LAB CHEMISTRY METHOD 03/04/2025 9:23 AM EDT [facility] Blood Venous blood specimen / Unknown Venipuncture / Unknown 03/04/2025 8:36 AM EDT 03/04/2025 8:45 AM EDT us Lizbeth Lau MD LAB BLOOD ORDERABLES Final Resul t [facility] [address] [place] [address], * (ABNORMAL) Vancomycin, trough (03/03/2025 6:18 PM EDT) Vancomycin Trough 5.5(L) 10.0 - 20.0 mcg/mL LAB CHEMISTRY METHOD 03/03/2025 7:09 PM EDT [facility] Blood Venous blood specimen / Unknown Venipuncture / Unknown 03/03/2025 6:18 PM EDT 03/03/2025 6:40 PM EDT Adis Bowden MD LAB BLOOD ORDERABLES Final Res ult [facility] [address] [place] [address], [place] [phone] * (ABNORMAL) Hepatic function panel (03/03/2025 10:51 AM EDT) ALT (SGPT) 6(L) 7 - 52 unit/L LAB CHEMISTRY METHOD 03/03/2025 11:58 AM EDT [facility] AST (SGOT) 11 5 - 40 unit/L LAB CHEMISTRY METHOD 03/03/2025 11:58 AM EDT [facility] Alkaline Phosphatase 54 34 - 104 unit/L LAB CHEMISTRY METHOD 03/03/2025 11:58 AM EDT [facility] Bilirubin, Direct 0.0 0.0 - 0.2 mg/dL LAB CHEMISTRY METHOD 03/03/2025 11:58 AM EDT [facility] Total Bilirubin 0.5 0.3 - 1.0 mg/dL LAB CHEMISTRY METHOD 03/03/2025 11:58 AM EDT [facility] Total Protein 6.0(L) 6.4 - 8.5 g/dL LAB CHEMISTRY METHOD 03/03/2025 11:58 AM EDT [facility] Albumin 3.6 3.5 - 5.0 g/dL LAB CHEMISTRY METHOD 03/03/2025 11:58 AM EDT [facility] Globulin, Total 2.4 2.3 - 3.5 g/dL LAB CHEMISTRY METHOD 03/03/2025 11:58 AM EDT [facility] A/G Ratio 1.5 LAB CHEMISTRY METHOD 03/03/2025 11:58 AM EDT [facility] Blood Venous blood specimen / Unknown Venipuncture / Unknown 03/03/2025 10:51 AM EDT 03/03/2025 11:21 AM EDT Adis Bowden MD LAB BLOOD ORDERABLES Final Res ult Performing Organization Address [facility]/ZIP Co de Phone Number [facility] [address] [place] [address], [place] [phone] * Culture wound deep (03/02/2025 4:04 PM EDT) Culture, Wound No growth aerobically and anaerobically at 5 days. 03/07/2025 11:52 AM EDT [facility] Gram Stain Result Many WBCs present 03/07/2025 11:52 AM EDT [facility] Gram Stain Result No organisms seen 03/07/2025 11:52 AM EDT [facility] Aspirate Topography unknown / Unknown 03/02/2025 4:04 PM EDT 03/02/2025 7:13 PM EDT us Adis Bowden MD LAB MICROBIOLOGY - GENERAL ORD ERABLES Final Result Performing Organization Address [facility] Co de Phone Number [facility] [address] [place] [address], * US Asp Abscess/Hematoma/Bulla/Cyst (03/02/2025 4:02 PM EDT) Anatomical Region Laterality Modality Body Ultrasound 03/02/2025 4:46 PM EDT Impressions 03/07/2025 10:41 PM EDT Successful ultrasound-guided right gluteal collection aspiration ATTESTATION: Jerri, Brock Rendon, was immediately available throughout the procedure and was present during the critical points of the procedure. -------- FINAL REPORT -------- Dictated By: Estrella Hernandez Dictated Date: 03/02/2025 16:46 ET Assigned Physician: Brock Rendon Reviewed and Electronically Signed By: Brock Rendon Signed Date: 03/07/2025 22:41 ET Workstation ID: [id number] Transcribed By: Self Edit Transcribed Date: 03/02/2025 16:48 ET Resident/PA/MONITORING MANAGER: Estrella Hernandez Narrative 03/07/2025 10:41 PM EDT Ultrasound-guided right gluteal aspiration HISTORY: Patient with prior buttock lift surgery. Patient noted a new lump on her right buttock. Imaging suggests possible hematoma. PROCEDURE: The patient was informed and consented to the procedure. Patient's right buttock was prepped and draped in sterile fashion. 2% lidocaine was used as anesthetic. Utilizing real-time ultrasound guidance 4- Yoruba Yueh catheter was placed into the collection. Total of 10 mL of bloody, purulent versus fat necrosis fluid was aspirated. The catheter was then removed. The majority of the collection was decompressed. A sterile dressing was applied. Permanent ultrasound images were saved to the PACS system. This procedure was performed by Estrella Hernandez PA-C and directly supervised by Dr. Rendon Procedure Note Brock Rendon MD - 03/07/2025 Ultrasound-guided right gluteal aspiration HISTORY: Patient with prior buttock lift surgery. Patient noted a newlump on her right buttock. Imaging suggests possible hematoma. PROCEDURE: The patient was informed and consented to the procedure.Patient's right buttock was prepped and draped in sterile fashion. 2%lidocaine was used as anesthetic. Utilizing real-time ultrasound guidance4-Yoruba Yueh catheter was placed into the collection. Total of 10 mL ofbloody, purulent versus fat necrosis fluid was aspirated. The catheterwas then removed. The majority of the collection was decompressed. Asterile dressing was applied. Permanent ultrasound images were saved tothe PACS system. This procedure was performed by Estrella Hernandez PA-C and directly supervisedby Dr. Rendon IMPRESSION: Successful ultrasound-guided right gluteal collection aspiration ATTESTATION: Brock Guthrie, was immediately available throughout theprocedure and was present during the critical points of the procedure. -------- FINAL REPORT -------- Dictated By: Estrella Hernandez Dictated Date: 03/02/2025 16:46 ET Assigned Physician: Brock Rendon Reviewed and Electronically Signed By: Brock Rendon Signed Date: 03/07/2025 22:41 ET Workstation ID: [id number] Transcribed By: Self Edit Transcribed Date: 03/02/2025 16:48 ET Resident/PA/MONITORING MANAGER: Estrella Hernandez us Estrella METZGER IMG US PROCEDURES Final Result * CT outside images (no interpretation) (03/02/2025 1:37 PM EDT) Narrative [facility] - 03/02/2025 1:37 PM EDT This order has been auto-finalized and does not contain a result. us Adis Bowden MD IMG CT PROCEDURES Final Result [facility] * Blood Culture, Peripheral #2 (03/02/2025 6:50 AM EDT) Only the most recent of2 resultswithin the time period is included. Culture, Blood No growth at 5 days 03/07/2025 8:01 AM EDT [facility] Blood Venous blood specimen / Unknown Venipuncture / Unknown 03/02/2025 6:50 AM EDT 03/02/2025 6:53 AM EDT us Brigette Cleveland DO LAB MICROBIOLOGY - GENERAL OR DERABLES Final Result [facility] [address] [place] [address], [place] [phone] * CT Abdomen Pelvis w Contrast (03/01/2025 9:41 PM EDT) Anatomical Region Laterality Modality Body Computed Tomogra phy 03/01/2025 10:2 5 PM EDT Impressions 03/01/2025 10:25 PM EDT 1. Fluid collection in the right gluteal region measuring 4.3 x 3 cm may represent hematoma. Focal area of probable fat infarct in the left gluteal region measuring 4 x 1.9 cm. 2. Right ovarian cyst measuring 2.3 cm. 3. Nonobstructive left intrarenal stones measuring up to 7 mm. This document has been electronically signed by: Kim Hernandez MD on 03/01/2025 22:25:46 Narrative 03/01/2025 10:25 PM EDT INDICATION: left inferior buttocks mass s/p buttock lift surgery CT abdomen and pelvis with contrast Comparison: None provided Findings: No consolidation or effusion. Nonobstructive left intrarenal stones measuring up to 7 mm. No bowel obstruction, pneumoperitoneum, or pneumatosis. Right ovarian cyst measuring 2.3 cm. The bones are intact. Fluid collection in the right gluteal region measuring 4.3 x 3 cm may represent hematoma. Focal area of probable fat infarct in the left gluteal region measuring 4 x 1.9 cm. Procedure Note Kim Hernandez MD - 03/01/2025 INDICATION: left inferior buttocks mass s/p buttock lift surgery CT abdomen and pelvis with contrast Comparison: None provided Findings: No consolidation or effusion. Nonobstructive left intrarenal stones measuring up to 7 mm. No bowel obstruction, pneumoperitoneum, or pneumatosis. Right ovarian cyst measuring 2.3 cm. The bones are intact. Fluid collection in the right gluteal region measuring 4.3 x 3 cm may represent hematoma. Focal area of probable fat infarct in the leftgluteal region measuring 4 x 1.9 cm. IMPRESSION: 1. Fluid collection in the right gluteal region measuring 4.3 x 3 cm may represent hematoma. Focal area of probable fat infarct in the leftgluteal region measuring 4 x 1.9 cm. 2. Right ovarian cyst measuring 2.3 cm. 3. Nonobstructive left intrarenal stones measuring up to 7 mm. This document has been electronically signed by: Kim Hernandez MD on 03/01/2025 22:25:[address] PROCEDURES Final Result * POC , urine manually resulted (03/01/2025 8:49 PM EDT) HCG, Ur POC Negative Negative POC hCG Int QC Pass? Yes Yes EXPIRATION DATE POC 07-13-2026 LOT NUMBER POC [id number] Urine Urine specimen obtained by clean catch procedure / Unknown 03/01/2025 8:49 PM EDT Aminta METZGER POINT OF CARE TEST ENTER /EDIT ORDERABLES Final Result * Comprehensive Metabolic Panel (CMP) (03/01/2025 8:46 PM EDT) [facility] Sodium 140 133 - 145 mmol/L LAB CHEMISTRY METHOD 03/01/2025 9:31 PM [facility] Potassium 3.8 3.5 - 5.5 mmol/L LAB CHEMISTRY METHOD 03/01/2025 9:31 PM [facility] Chloride 106 96 - 110 mmol/L LAB CHEMISTRY METHOD 03/01/2025 9:31 PM [facility] CO2 28 21 - 32 mmol/L LAB CHEMISTRY METHOD 03/01/2025 9:31 PM [facility] Anion Gap 6 3 - 11 LAB CHEMISTRY METHOD 03/01/2025 9:31 PM [facility] Glucose 89 70 - 100 mg/dL LAB CHEMISTRY METHOD 03/01/2025 9:31 PM [facility] BUN 18 5 - 25 mg/dL LAB CHEMISTRY METHOD 03/01/2025 9:31 PM [facility] Creatinine 0.65 0.50 - 1.10 mg/dL LAB CHEMISTRY METHOD 03/01/2025 9:31 PM [facility] eGFR 116 >=60 mL/min/1. 73m2 LAB CHEMISTRY METHOD 03/01/2025 9:31 PM [facility] Comment:Calculation based on the Chronic Kidney Disease Epidemiology Collaboration (CKD-EPI) equation refit without adjustment for race. BUN/Creatinine Ratio 27.7 LAB CHEMISTRY METHOD 03/01/2025 9:31 PM EDT [facility] Calcium 9.0 8.5 - 10.5 mg/dL LAB CHEMISTRY METHOD 03/01/2025 9:31 PM EDT [facility] AST (SGOT) 13 10 - 42 unit/L LAB CHEMISTRY METHOD 03/01/2025 9:31 PM EDT [facility] ALT (SGPT) 19 10 - 60 unit/L LAB CHEMISTRY METHOD 03/01/2025 9:31 PM T [facility] Alkaline Phosphatase 74 42 - 121 unit/L LAB CHEMISTRY METHOD 03/01/2025 9:31 PM [facility] Total Protein 6.6 6.0 - 8.0 g/dL LAB CHEMISTRY METHOD 03/01/2025 9:31 PM [facility] Albumin 3.7 3.2 - 5.0 g/dL LAB CHEMISTRY METHOD 03/01/2025 9:[facility] Total Bilirubin 0.2 0.0 - 1.4 mg/dL LAB CHEMISTRY METHOD 03/01/2025 9:31 PM EDT [facility] Blood Venous blood specimen / Unknown Venipuncture / Unknown 03/01/2025 8:46 PM EDT 03/01/2025 8:56 PM EDT us Aminta METZGER LAB BLOOD ORDERABLES Fin al Result [facility] [address] [place] [address], * XR Wrist 3+ Views Right (02/07/2025 1:55 PM EDT) Anatomical Region Laterality Modality Upper Extremities, Wrist Right Compute d Radiography Narrative 02/07/2025 2:58 PM EDT Three-view x-rays of the right wrist show no acute fractures or dislocations, no osseous lesions or abnormalites, soft tissue shadows appear normal, no significant degenerative changes Impression: Normal x-ray of the right wrist without osseous abnormalities Alan METZGER IMG XR PROCEDURES Final Result * HIV 1,2 antibody, p24 antigen with reflex to differentiation (08/12/2024 11:01 AM EDT) Pathologist [facility] HIV Combo AB/AG Negative Negative LAB CHEMISTRY METHOD 08/12/2024 4:03 PM EDT [facility] Blood Venous blood specimen / Unknown Venipuncture / Unknown 08/12/2024 11:01 AM EDT 08/12/2024 11:01 AM EDT Narrative [facility] - 08/12/2024 4:03 PM EDT This assay is a 4th generation assay allowing for earlier detection of HIV infection by detecting the presence of the HIV-1 p24 antigen as well as the traditional antibodies to HIV type 1 (including group O) and type 2. Use of a 4th generation assay is the current CDC recommendation for HIV screening. Shanice Duke MD LAB BLOOD ORDERABLES Final Resul t [facility] [address] [place] [address], [place] [phone] * Lipid panel with reflex to direct LDL (07/23/2024 10:48 AM EST) Pathologist [facility] Cholesterol 155 0 - 200 mg/dL LAB CHEMISTRY METHOD 07/23/2024 7:37 PM EST [facility] Triglycerides 59 0 - 150 mg/dL LAB CHEMISTRY METHOD 07/23/2024 7:37 PM EST [facility] HDL 52 >=40 mg/dL LAB CHEMISTRY METHOD 07/23/2024 7:37 PM EST [facility] LDL Calculated 91 0 - 100 mg/dL LAB CHEMISTRY METHOD 07/23/2024 7:37 PM EST [facility] VLDL Cholesterol Volodymyr 11.8 mg/dL LAB CHEMISTRY METHOD 07/23/2024 7:37 PM EST [facility] Non HDL Chol. (LDL+VLDL) 103 <145 mg/dL LAB CHEMISTRY METHOD 07/23/2024 7:37 PM EST [facility] Chol/HDL Ratio 3.0 0.0 - 4.4 LAB CHEMISTRY METHOD 07/23/2024 7:37 PM EST [facility] Blood Venous blood specimen / Unknown Venipuncture / Unknown 07/23/2024 10:48 AM EST 07/23/2024 10:48 AM EST Jaylin METZGER LAB BLOOD ORDERABLES Final Re sult [facility] [address] [place] [address], * Hepatitis C Screening (06/23/2018) Hepatitis C Screening abstracted Historical Provider HEALTH MAINTENANCE Final Result * Pap smear (06/23/2018) 06/23/2018 Narrative HISTORICAL TESTING LAB RESULTING AGENCY - 06/25/2018 1:45 PM EST [id number] THINPREP PAP, IMAGED: NEGATIVE FOR SQUAMOUS INTRAEPITHELIAL LESION AND MALIGNANCY . ML PAZ(ASCP) (CASE ELECTRONICALLY SIGNED 06 25 2018) RESULT OF APTIMA HIGH RISK HPV ASSAY: HIGH RISK HPV: NEGATIVE (SEROTYPES 16,18,31,33,35,39,45,51,52,56,58,59,66,68) COMPLETED ON 2018-06-25 ADEQUACY: SATISFACTORY ENDOCERVICAL/TRANSFORMATION ZONE COMPONENT ABSENT. SOURCE: THINPREP PAP HPV ANY DX: REFLEX 16 AND 18, CERVICAL, IMAGED CLINICAL INFORMATION: HPV ANY DIAGNOSIS. Z12.4, Z11.3 us Rosario Beckham MD LAB CYTOLOGY ORDERABLES Fin al Result HISTORICAL TESTING LAB RESULTING AGENCY from Last 3 Months or Most Recently Relevant to Health Maintenance [place] [address] [address] [place] [address] PLAN MEDICAID - [place] [employer]IVE [facility] PLAN Advance Directives * Full Code - Default (Latest Code Status on File) Date Activated Date Inactivated Comments 03/02/2025 8:46 AM 03/04/2025 3:35 PM This is ord er is used when code status has not been discussed with the patient, or code status is otherwise unknown/unconfirmed To update the patient's code status, place a code status order. Do not modify or discontinue any currently active code status orders. Care Teams Sr. Unix System Administrator Relationship Specialty Start Date End Date Shanice Duke MD [address] [place] [address] PCP - General Internal Medicine 06/14/24
--- OUTSIDE RECORDS SUMMARY | 2025-04-25 16:55 | XMS_ITS | Clinical Summary ---
[facility] Organization [facility] Address [address] [place] [address] Care Team Providers Care Sample Shoe Inspector And Reworker Name Role Phone Shanice Duke MD Primary Care Provider [phone] Medications Medication Sig Dispensed Refills Start Date End Date Status levonorgestrel (MIRENA) 20 MCG/DAY IUD 1 each by Intrauterine route once. 0 Active calcium carbonate (TUMS) 500 MG chewable tablet Chew 1 tablet by mouth daily. 0 Active amLODIPine (NORVASC) tablet 5 mg Take 5 mg by mouth daily. 0 Active Active Problems Problem Noted Date Diagnosed Date Erythrocytosis 02/25/2022 Social History Tobacco Use Types Packs/Day Years Used Date Smoking Tobacco: Never Assessed Sex and Gender Information Value Date Recorded Sex Assigned at Not on file Gender Identity Not on file Sexual Orientation Not on file Job Start Date Occupation Industry Not on file Not on file Not on file Last Filed Vital Signs Vital Sign Reading Time Taken Comments Blood Pressure 133/76 03/19/2022 3:03 PM EDT Pulse 68 03/19/2022 3:03 PM EDT Temperature 36.5 C (97.7 F) 03/19/2022 3:03 PM EDT Respiratory Rate - - Oxygen Saturation 100% 03/19/2022 3:03 PM EDT Inhaled Oxygen Concentration - - Weight 83 kg (183 lb) 03/19/2022 3:03 PM EDT Height 154.2 cm (5' 0.7 ) 03/19/2022 3:03 PM EDT Body Mass Index 34.92 03/19/2022 3:03 PM EDT Plan of Treatment Health Maintenance Due Date Last Done Comments Hepatitis B Vaccines (1 of 3 - 3-dose series) 1987 Hepatitis C Screening 1987 Depression Screening 1999 Preventative Health Evaluation 2005 Cervical Cancer Screening (Pap Smear) 2008 DTap / Tdap / Td (2 - Td or Tdap) 11/18/2023 11/17/2013 COVID-19 Vaccine (3 - 2024-2 6 season) 2025 12/20/2020, 11/30/2020 Influenza Vaccine (#1) 2025 03/13/2020 Pneumococcal Vaccine Aged Out No long er eligible based on patient's age to complete this topic RSV Ped < 20 months Aged Out No longe r eligible based on patient's age to complete this topic Care Teams Sample Shoe Inspector And Reworker Relationship Specialty Start Date End Date Shanice Duke MD PCP - General Internal Medicine 01/15/22
== END 2025-04-25 14:44 | disposition home or self-care (01) ==
LOC: HO.HWSM 13:19
PROVIDERS: PCP Internal Medicine; Visit Provider Advanced Practice Midwife
DX: Z01.419 Encounter for gynecological examination (general) (routine) without abnormal findings (principal); Z98.891 History of uterine scar from previous surgery; Z98.890 Other specified postprocedural states; Z11.3 Encounter for screening for infections with a predominantly sexual mode of transmission
CPT/HCPCS: 99395

== ENCOUNTER 2025-04-25 13:19 | Outpatient (REF) | payer OTHER, SELFPAY ==
[2025-04-26 07:51] LABS: Syphilis Screen Nonreactive (Nonreactive)
[2025-04-26 08:04] LABS: HBsAGNum1 0.40 S/CO (0.00-0.99); HIV Num 1 0.06 S/CO (0.00-0.99); Hepatitis B Surface Antigen Negative (Negative); ~HepC Num1 0.09 S/CO (0.00-0.79); ~Hepatitis C Antibody Nonreactive (Nonreactive)
[2025-04-26 15:04] LABS: Bacterial Vaginosis PCR POSITIVE (Negative); Candida Group PCR NOT DETECTED (Not Detect); Candida glab krusei PCR NOT DETECTED (Not Detect); Trichomonas vaginalis PCR NOT DETECTED (Not Detect)
[2025-04-26 15:36] LABS: CT PCR NOT DETECTED (Not Detect.); NG PCR NOT DETECTED (Not Detect.)
== END 2025-04-25 13:20 | disposition home or self-care (01) ==
LOC: HO.HHCL 13:19
PROVIDERS: PCP Internal Medicine; Visit Provider Advanced Practice Midwife
DX: Z01.419 Encounter for gynecological examination (general) (routine) without abnormal findings (principal); Z98.891 History of uterine scar from previous surgery; Z98.890 Other specified postprocedural states; Z20.2 Contact with and (suspected) exposure to infections with a predominantly sexual mode of transmission; Z11.51 Encounter for screening for human papillomavirus (HPV); Z11.4 Encounter for screening for human immunodeficiency virus [HIV]; Z11.59 Encounter for screening for other viral diseases
CPT/HCPCS: 36415; 81515; 86780; 86803; 87340; 87389; 87491; 87591; 87626; 88175